=== PATIENT | female | born 1980 | race Caucasian/White ===

== ENCOUNTER 2016-07-13 05:21 | Emergency (ER) | payer BC ==
[2016-07-13 05:36] VITALS: RESP 18
[2016-07-13] MEDS ORDERED: ONDANSETRON 4 MG/2 ML VIAL IVP STA ×2 (05:42→08:08)
[2016-07-13] MEDS ORDERED: SODIUM CHLORIDE 0.9% 1,000 ML IV STA (05:42)
--- NOTE | 2016-07-13 05:44 | ED ---
General Adult HPI - General Source: patient, RN notes reviewed Mode of arrival: ambulatory Limitations: no limitations <Salvatore Hernandez - Last Filed: 07/13/16 06:51> <Salvatore Day - Last Filed: 07/13/16 09:09> - General Chief complaint: Abdominal Pain Stated complaint: abd pain Time Seen by Provider: 07/13/16 05:30 - History of Present Illness Initial comments: This is a 35-year-old female who presents to the emergency department with a 2 day history of some abdominal pain. Patient states she started with diarrhea and that stopped yesterday but she has been vomiting since then. Patient states she's had right upper quadrant abdominal pain that is intermittent in nature currently is not there. Patient states she still nauseated however. Patient denies any fever or chills. Patient denies any chest pain palpitations difficult breathing shortness of breath. Patient denies any dysuria hematuria urinary frequency. Patient denies any vaginal bleeding. Patient denies any back pain. Patient denies headache patient denies numbness weakness. (Salvatore Hernandez) - Related Data Home Medications Medication Instructions Recorded Confirmed Dextroamphetamine/Amphetamine 20 mg PO QAM 07/13/16 07/13/16 [Adderall Xr] Dextroamphetamine/Amphetamine 30 mg PO BID 07/13/16 07/13/16 [Adderall] Allergies Allergy/AdvReac Type Severity Reaction Status Date / Time shellfish derived [Shellfish] Allergy Anaphylaxis Verified 07/13/16 05:36 NSAIDS (Non-Steroidal AdvReac Abdominal Verified 07/13/16 05:36 Anti-Inflamma Pain Review of Systems ROS Other: All systems not noted in ROS Statement are negative. <Salvatore Hernandez - Last Filed: 07/13/16 06:51> ROS Other: All systems not noted in ROS Statement are negative. <Salvatore Day - Last Filed: 07/13/16 09:09> ROS Statement: Those systems with pertinent positive or pertinent negative responses have been documented in the HPI. Past Medical History Past Medical History: No Reported History History of Any Multi-Drug Resistant Organisms: None Reported Past Surgical History: Section Additional Past Surgical History / Comment(s): L5-S1 fusion Past Psychological History: ADD/ADHD Smoking Status: Never smoker Past Alcohol Use History: Occasional Past Drug Use History: None Reported <Reagan Hernandezophe - Last Filed: 07/13/16 06:51> General Exam Limitations: no limitations <Salvatore Hernandez - Last Filed: 07/13/16 06:51> General appearance: alert, in no apparent distress Head exam: Present: atraumatic, normocephalic, normal inspection Eye exam: Present: normal appearance, PERRL, EOMI. Absent: scleral icterus, conjunctival injection, periorbital swelling ENT exam: Present: normal exam, mucous membranes moist Neck exam: Present: normal inspection. Absent: tenderness, meningismus, lymphadenopathy Respiratory exam: Present: normal lung sounds bilaterally. Absent: respiratory distress, wheezes, rales, rhonchi, stridor Cardiovascular Exam: Present: regular rate, normal rhythm, normal heart sounds. Absent: systolic murmur, diastolic murmur, rubs, gallop, clicks GI/Abdominal exam: Present: soft, normal bowel sounds. Absent: distended, tenderness, guarding, rebound, rigid Extremities exam: Present: normal inspection, full ROM, normal capillary refill. Absent: tenderness, pedal edema, joint swelling, calf tenderness Back exam: Present: normal inspection Neurological exam: Present: alert, oriented X3, CN II-XII intact Psychiatric exam: Present: normal affect, normal mood Skin exam: Present: warm, dry, intact, normal color. Absent: rash <Salvatore Day - Last Filed: 07/13/16 09:09> - General Exam Comments Initial Comments: GENERAL: Patient is well-developed and well-nourished. Patient is nontoxic and well- hydrated and is in mild distress. ENT: Neck is soft and supple. No significant lymphadenopathy is noted. Oropharynx is clear. Moist mucous membranes. Neck has full range of motion without eliciting any pain. EYES: The sclera were anicteric and conjunctiva were pink and moist. Extraocular movements were intact and pupils were equal round and reactive to light. Eyelids were unremarkable. PULMONARY: Unlabored respirations. Good breath sounds bilaterally. No audible rales rhonchi or wheezing was noted. CARDIOVASCULAR: There is a regular rate and rhythm without any murmurs gallops or rubs. ABDOMEN: Soft and nontender with normal bowel sounds. No palpable organomegaly was noted. There is no palpable pulsatile mass. SKIN: Skin is clear with no lesions or rashes and otherwise unremarkable. NEUROLOGIC: Patient is alert and oriented x3. Cranial nerves II through XII are grossly intact. Motor and sensory are also intact. Normal speech, volume and content. Symmetrical smile. MUSCULOSKELETAL: Normal extremities with adequate strength and full range of motion. No lower extremity swelling or edema. No calf tenderness. LYMPHATICS: No significant lymphadenopathy is noted PSYCHIATRIC: Normal psychiatric evaluation. (Salvatore Hernandez) Course <Salvatore Hernandez - Last Filed: 07/13/16 06:51> <Salvatore Day - Last Filed: 07/13/16 09:09> Vital Signs 07/13/16 07/13/16 07/13/16 05:30 07:13 08:27 Temperature 98.6 F Pulse Rate 102 H 88 106 H Respiratory 18 18 18 Rate Blood Pressure 157/98 137/84 139/86 O2 Sat by Pulse 99 98 100 Oximetry - Reevaluation(s) Reevaluation #1: 07/13/16 09:07 Patient is reexamined, results are gone over with the patient, The same pain is significantly improved (Salvatore Day) Medical Decision Making - Lab Data Result diagrams: 07/13/16 05:57 07/13/16 05:57 <Salvatore Hernandez - Last Filed: 07/13/16 06:51> - Lab Data Result diagrams: 07/13/16 05:57 07/13/16 05:57 - Radiology Data Radiology results: report reviewed (Ultrasound gallbladder negative for acute disease), image reviewed <Salvatore Day - Last Filed: 07/13/16 09:09> - Medical Decision Making Dr. Day will be taking over the care of this patient at 7 AM (Salvatore Hernandez) 35 female PATRICIA free vaginal doll pain, some dull pain is much improved, still question gallbladder disease secondary to symptoms and risk factors, although patient could have ulcer, patient did have good hope a GI cocktail pain is controlled we'll discharge home with antacids antihistamines and pain control ( Salvatore Day) - Lab Data Lab Results 07/13/16 07/13/16 07/13/16 Range/Units 05:57 05:57 06:28 WBC 6.3 (3.8-10.6) k/uL RBC 4.59 (3.80-5.40) m/uL Hgb 13.5 (11.4-16.0) gm/dL Hct 39.1 (34.0-46.0) % MCV 85.3 (80.0-100.0) fL MCH 29.4 (25.0-35.0) pg MCHC 34.4 (31.0-37.0) g/dL RDW 13.5 (11.5-15.5) % Plt Count 265 (150-450) k/uL Neutrophils % 66 % Lymphocytes % 25 % Monocytes % 5 % Eosinophils % 1 % Basophils % 1 % Neutrophils # 4.1 (1.3-7.7) k/uL Lymphocytes # 1.6 (1.0-4.8) k/uL Monocytes # 0.3 (0-1.0) k/uL Eosinophils # 0.1 (0-0.7) k/uL Basophils # 0.0 (0-0.2) k/uL Sodium 145 (137-145) mmol/L Potassium 3.7 (3.5-5.1) mmol/L Chloride 107 (98-107) mmol/L Carbon Dioxide 27 (22-30) mmol/L Anion Gap 11 mmol/L BUN 9 (7-17) mg/dL Creatinine 0.66 (0.52-1.04) mg/dL Est GFR (MDRD) Af Amer >60 (>60 ml/min/1.73 sqM) Est GFR (MDRD) Non-Af >60 (>60 ml/min/1.73 sqM) Glucose 90 (74-99) mg/dL Calcium 8.7 (8.4-10.2) mg/dL Total Bilirubin 0.5 (0.2-1.3) mg/dL AST 19 (14-36) U/L ALT 34 (9-52) U/L Alkaline Phosphatase 55 (38-126) U/L Total Protein 6.9 (6.3-8.2) g/dL Albumin 4.0 (3.5-5.0) g/dL Amylase 93 (30-110) U/L Lipase 142 (23-300) U/L Urine Color Yellow Urine Appearance Cloudy H (Clear) Urine pH 6.5 (5.0-8.0) Ur Specific [place] 1.012 (1.001-1.035) Urine Protein Negative (Negative) Urine Glucose (UA) Negative (Negative) Urine Ketones Negative (Negative) Urine Blood Negative (Negative) Urine Nitrate Negative (Negative) Urine Bilirubin Negative (Negative) Urine Urobilinogen <2.0 (<2.0) mg/dL Ur Leukocyte Esterase Negative (Negative) Urine WBC 2 (0-5) /hpf Ur Squamous Epith Cells 43 H (0-4) /hpf Urine Bacteria Rare H (None) /hpf Urine Mucus Few H (None) /hpf Urine Yeast (Budding) Occasional H (None) /hpf Disposition <Salvatore Hernandez - Last Filed: 07/13/16 06:51> <Salvatore Day - Last Filed: 07/13/16 09:09> Clinical Impression: Abdominal pain Disposition: HOME SELF-CARE Condition: Good Instructions: Abdominal Pain (ED) Referrals: Celia Ibarra DO [Primary Care Provider] - 1-2 days Rena Gilman MD [STAFF PHYSICIAN] - 1-2 days
[2016-07-13 06:13] LABS: Basophils % (A) 1 %; CH 29.1; CHCM 34.2; Eosinophils # (A) 0.1 k/uL (0-0.7); Eosinophils % (A) 1 %; HCT 39.1 % (34.0-46.0); HDW 2.97; HGB 13.5 gm/dL (11.4-16.0); Luc # (Auto) 0.11; Luc % (Auto) 2; Lymphocytes # (A) 1.6 k/uL (1.0-4.8); Lymphocytes % (A) 25 %; MCH 29.4 pg (25.0-35.0); MCHC 34.4 g/dL (31.0-37.0); MCV 85.3 fL (80.0-100.0); Mean Platelet Volume 7.4; Monocytes # (A) 0.3 k/uL (0-1.0); Monocytes % (A) 5 %; Neutrophils # (A) 4.1 k/uL (1.3-7.7); Neutrophils % (A) 66 %; RBC 4.59 m/uL (3.80-5.40); RDW 13.5 % (11.5-15.5); WBC 6.3 k/uL (3.8-10.6); WBC (Perox) 6.23
[2016-07-13] MEDS ORDERED: HYDROmorphone 1 MG/ML 1 ML SYRINGE IVP STA (06:23)
[2016-07-13 06:25] LABS: ALT 34 U/L (9-52); AST 19 U/L (14-36); Alkaline Phosphatase 55 U/L (38-126); Amylase 93 U/L (30-110); Anion Gap 11 mmol/L; Blood Urea Nitrogen 9 mg/dL (7-17); Calcium 8.7 mg/dL (8.4-10.2); Carbon Dioxide 27 mmol/L (22-30); Chloride 107 mmol/L (98-107); Glucose 90 mg/dL (74-99); Non-African American GFR(MDRD) >60 (>60 ml/min/1.73 sqM); Potassium 3.7 mmol/L (3.5-5.1); Sodium 145 mmol/L (137-145); Total Bilirubin 0.5 mg/dL (0.2-1.3); Total Protein 6.9 g/dL (6.3-8.2)
[2016-07-13 06:43] LABS: Appearance,Urine Cloudy (Clear); Bacteria,Urine Rare /hpf; Bilirubin,Urine Negative (Negative); Glucose,Urine (UA) Negative (Negative); Ketones,Urine Negative (Negative); Leukocyte Esterase,Urine Negative (Negative); Mucus,Urine Few /hpf; Nitrite,Urine Negative (Negative); PH, Urine 6.5 (5.0-8.0); Particle Count 26514; Protein,Urine Negative (Negative); Specific Gravity,Urine 1.012 (1.001-1.035); Squamous Epithelial Cell,Urine 43 /hpf (0-4); UA Billing (MACRO vs. MICRO) MICRO; Urobilinogen,Urine <2.0 mg/dL (<2.0); WBC,Urine 2 /hpf (0-5)
--- NOTE | 2016-07-13 07:53 | US ---
EXAMINATION TYPE: US gallbladder DATE OF EXAM: 07/13/2016 7:45 AM COMPARISON: No previous CLINICAL HISTORY: Pain. RUQ pain and nausea x 4 days, gets worse after eating EXAM MEASUREMENTS: Liver Length: 16.7 cm Gallbladder Wall: 0.3 cm CBD: 0.4 cm Right Kidney: 9.8 x 5.0 x 5.1 cm TECHNOLOGIST IMPRESSION: Pancreas: Obscured by bowel gas Liver: visualized portions appear slightly heterogeneous, scanned intercostally, limited by rib shad owing Gallbladder: wnl Evidence for sonographic Guillen's sign: yes CBD: visualized portions wnl, limited by overlying bowel gas Right Kidney: visualized portions wnl, inferior pole limited by overlying bowel gas IMPRESSION: No sonographic abnormality. No gallstones or dilated ducts. There was however some pain o marce the gallbladder during the exam.
[2016-07-13] MEDS ORDERED: MAG HYDROX/AL HYDROX/SIMETH 30 ML, HYOSCYAMINE ELIXIR 10 ML, CIMETIDINE HCL 300 MG PO STA ×3 (08:08)
[2016-07-13] MEDS ORDERED: PANTOPRAZOLE 40 MG/10 ML VIAL IVP STA (08:08)
[2016-07-13] MEDS ORDERED: KETOROLAC 30 MG/ML 1 ML VIAL IVP STA (08:08)
[2016-07-13] MEDS ORDERED: MORPHINE SULFATE 4 MG/ML SYRINGE IVP STA (08:08)
[2016-07-13 09:17] VITALS: BP 124/83; PULSE 89; TEMP 98
== END 2016-07-13 09:17 | disposition home or self-care (01) ==
LOC: EC 05:21
DX: R11.2 Nausea with vomiting, unspecified (principal); F90.9 Attention-deficit hyperactivity disorder, unspecified type; Z88.6 Allergy status to analgesic agent; Z91.013 Allergy to seafood; Z79.899 Other long term (current) drug therapy
CPT/HCPCS: 36415; 80053; 82150; 83690; 85025; 81001; 76705; 99284; 96374; 96375 ×4; 96376; 96361; J2270; J2405; J1885; J1170; C9113

== ENCOUNTER → 2018-03-30 | Outpatient (CLI) | payer OTHER ==
--- NOTE | 2018-03-30 13:29 | XR ---
EXAMINATION TYPE: XR chest 2V DATE OF EXAM: 03/30/2018 COMPARISON: NONE HISTORY: Preop uterine cancer TECHNIQUE: Frontal and lateral views of the chest are obtained. FINDINGS: There is no focal air space opacity, pleural effusion, or pneumothorax seen. The cardiac silhouette size is within normal limits. The osseous structures are intact. Patient is rotated. IMPRESSION: No acute cardiopulmonary process.
[2018-03-30 14:33] LABS: Basophils # (A) 0.1 k/uL (0-0.2); Basophils % (A) 1 %; Eosinophils # (A) 0.2 k/uL (0-0.7); Eosinophils % (A) 3 %; HCT 37.8 % (34.0-46.0); HGB 12.4 gm/dL (11.4-16.0); Lymphocytes % (A) 31 %; MCH 27.9 pg (25.0-35.0); MCHC 32.7 g/dL (31.0-37.0); MCV 85.4 fL (80.0-100.0); Mean Platelet Volume 6.6; Monocytes # (A) 0.2 k/uL (0-1.0); Monocytes % (A) 4 %; Neutrophils # (A) 3.9 k/uL (1.3-7.7); Neutrophils % (A) 61 %; Platelet Count 396 k/uL (150-450); RBC 4.43 m/uL (3.80-5.40); WBC 6.4 k/uL (3.8-10.6)
[2018-03-30 14:40] LABS: ALT 21 U/L (9-52); AST 22 U/L (14-36); Albumin 4.3 g/dL (3.5-5.0); Alkaline Phosphatase 70 U/L (38-126); Anion Gap 8 mmol/L; Blood Urea Nitrogen 14 mg/dL (7-17); Carbon Dioxide 29 mmol/L (22-30); Chloride 104 mmol/L (98-107); Glucose 108 mg/dL (74-99); Potassium 4.8 mmol/L (3.5-5.1); Sodium 141 mmol/L (137-145); Total Bilirubin 0.2 mg/dL (0.2-1.3); Total Protein 7.2 g/dL (6.3-8.2)
[2018-03-30 15:18] LABS: Appearance,Urine Clear (Clear); Bacteria,Urine Rare /hpf; Bilirubin,Urine Negative (Negative); Blood,Urine Negative (Negative); Color,Urine Yellow; Glucose,Urine (UA) Negative (Negative); Ketones,Urine Negative (Negative); Leukocyte Esterase,Urine Moderate (Negative); Nitrite,Urine Negative (Negative); Protein,Urine Negative (Negative); RBC,Urine <1 /hpf (0-5); Specific Gravity,Urine 1.009 (1.001-1.035); Squamous Epithelial Cell,Urine 2 /hpf (0-4); Urobilinogen,Urine <2.0 mg/dL (<2.0); WBC,Urine 1 /hpf (0-5)
== END | disposition home or self-care (01) ==
LOC: RADXRMAIN 12:48
PROVIDERS: ATTEND Obstetrics & Gynecology Gynecologic Oncology
DX: C53.9 Malignant neoplasm of cervix uteri, unspecified (principal)
CPT/HCPCS: 71046; 80053; 81001; 82378; 85025; 86304; 86850; 86900; 86901; 87086

== ENCOUNTER → 2020-03-24 | Outpatient (CLI) | payer OTHER, BC | END | disposition home or self-care (01) | LOC: LABWHC1 16:34 | PROVIDERS: ATTEND Internal Medicine | DX: R53.82 Chronic fatigue, unspecified (principal) | CPT/HCPCS: U0003; C9803 ==

== ENCOUNTER → 2020-07-05 | Outpatient (CLI) | payer OTHER, BC ==
[2020-07-05 15:38] VITALS: BP 124/82; PULSE 108; RESP 18; TEMP 97.6; BMI 38.0
--- NOTE | 2020-07-05 15:57 | P.HPBAR ---
Bariatric H&P - History & Physicial H&P Date: 07/05/20 History & Physicial: Visit/CC: initial visit Patient initial contact: Initial weight: Initial weight in pounds: Height: 5 ft 5.25 in Initial BMI: Last weight: Current weight: 104.553 kg Current weight in pounds: 230.50 Current BMI: 38.0 [place] body weight (based on NIH guidelines): 57.266 kg Excess body weight loss: The patient is a 39 year-old F who presents for Bariatric Assessment. DATE OF SERVICE: 07/05/2020 REASON FOR CONSULTATION: Initial bariatric evaluation HISTORY OF PRESENT ILLNESS: Shilpa Thomas is a 39-year-old female who comes with morbid obesity. 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 Her highest weight is at present. Her family obesity includes an aunt with troubles with her weight. She denies stomach or esophageal cancer in the family. She denies moderate gastroesophageal reflux disease. She has lower back pain. She has sciatica. She has knee pain. She denies ankle pain. She has foot pain. She denies swelling along legs and feet. She has food allergy to shellfish. She still has her gallbladder. Her daughter had gallbladder problem at age 13. She had a total hysterectomy and appendix in 2018. She had gallbladder ultrasound in 2017. She was placed on Carafate and Prilosec for abdominal pain. She denies colon cancer, stomach or esophageal cancer. She denies easy bruising or bleeding. No reports of DVTs. No reports of diarrhea. She is looking into the gastric bypass. She presents for the first time in consultation for weight loss. At height of 5 feet 5.25 inches, her ideal body weight is 149 pounds. She comes in 230 pounds. Her body mass index is 38.1. She is 81 pounds overweight. PAST MEDICAL HISTORY: 1. Morbid obesity due to excess calories 2. Body mass index of 38.0, initial 3. Hypertensive heart disease. 4. Neuropathy PAST SURGICAL HISTORY: 1. Appendectomy 2. section 3. Hysterectomy 4. L5-S1 Fusion HOME MEDICATIONS: Home Medications Medication Instructions Recorded Confirmed Dextroamphetamine/Amphetamine 20 mg PO QAM 07/13/16 07/05/20 [Adderall Xr] Dextroamphetamine/Amphetamine 30 mg PO BID 07/13/16 07/05/20 [Adderall] Atenolol [Tenormin] 50 mg PO DAILY 07/05/20 07/05/20 Gabapentin [Neurontin] 800 mg PO QID 07/05/20 07/05/20 Metaxalone [Skelaxin] 800 mg PO TID PRN 07/05/20 07/05/20 ALLERGIES: Allergies Allergy/AdvReac Type Severity Reaction Status Date / Time shellfish derived [Shellfish] Allergy Anaphylaxis Verified 07/05/20 15:30 NSAIDS (Non-Steroidal AdvReac Abdominal Verified 07/05/20 15:30 Anti-Inflamma Pain SOCIAL HISTORY: Denies past tobacco use. FAMILY HISTORY: No family history of ulcerative colitis disease or Crohn's disease. Family history of morbid obesity. No lupus in the family. No reports of stomach or esophageal cancer. REVIEW OF ORGAN SYSTEMS: CONSTITUTIONAL: At height of 5 feet 5.25 inches, her ideal body weight is 149 pounds. She comes in 230 pounds. Her body mass index is 38.1. She is 81 pounds overweight. HEENT: Denies any active troubles with vision or hearing. Denies troubles with swallowing. ENDOCRINE: Denies diabetes. No hypothyroidism. CARDIOVASCULAR: Denies current reports of palpitations or heart attacks or chest pain. Has hypertensive heart disease. RESPIRATORY: Denies daytime somnolence. Denies chronic obstructive pulmonary d isease. GASTROINTESTINAL: Denies any bright red blood per rectum. No diarrhea. No constipation. Has gastroesophageal reflux disease. GENITOURINARY: Denies bladder urgency. No recent blood in urine MUSCULOSKELETAL: Has lower back pain and joint pain. Has osteoarthritis of the knees. NEURO: No headaches. No seizure disorders. Has neuropathy. PSYCH: Has depression. No suicidal ideation. RHEUMATOLOGIC: No lupus. No rheumatoid arthritis. HEMATOLOGIC: Denies any abnormal bleeding or bruising. Denies past history of DVTs. SKIN: No rash. No skin cancer. PHYSICAL EXAM: VITAL SIGNS: Height 5 foot 5.25 inches, weight 230 pounds. BMI 38.1 Vital Signs Temp 97.6 F 07/05/20 15:29 Pulse 108 H 07/05/20 15:29 Resp 18 07/05/20 15:29 BP 124/82 02/17/21 15:29 Pulse Ox GENERAL: Well-developed in no acute distress. HEENT: No scleral icterus. Extraocular movements grossly intact. Hears conversational speech. No nasal drainage. NECK: Supple without lymphadenopathy. CHEST: Nonlabored respirations with equal bilateral excursions. CARDIOVASCULAR: Tachycardia. Distal 2+ pulses. ABDOMEN: Obese, soft, nontender, nondistended. MUSCULOSKELETAL: No clubbing, cyanosis. NEURO: No focal or lateralizing signs. Cranial nerves 2 through 12 grossly within normal limits. PSYCH: Appropriate affect. Alert and oriented to person, place and time. SKIN: Good skin turgor. Well perfused. ASSESSMENT: 1. Morbid obesity due to excess calories 2. Body mass index of 38.0, initial 3. Hypertensive heart disease. 4. Neuropathy 5. Dietary surveillance and counseling PLAN: 1. Surgical options including a band, gastric bypass, sleeve gastrectomy were described in detail. Alternatives such as gastric balloon including duodenal switch were described. She is looking into the gastric bypass. 2. The [place] bariatric surgical collaborative data and outcomes calculator were described with surgical options. 3. Recommend a bariatric metabolic panel to evaluate for micro- including macronutrient deficiencies. 4. For history of daytime somnolence, recommend evaluation and treatment for sleep apnea. 5. Dietary surveillance and counseling was reviewed. Increased protein intake over 65 grams daily advised. 6. Will need cardiac risk assessment. 7. Recommend medical risk assessment. 8. Psych assessment per insurance guidelines. 9. Recommend upper endoscopy. 10. Recommend 12-lead EKG. Thank you for this consultation. Past Medical History Past Medical History: Cancer Additional Past Medical History / Comment(s): cervical cancer, stage 0 - 2018. History of Any Multi-Drug Resistant Organisms: None Reported Past Surgical History: Appendectomy, Section, Hysterectomy, Orthopedic Surgery Additional Past Surgical History / Comment(s): L5-S1 fusion Past Anesthesia/Blood Transfusion Reactions: No Reported Reaction Past Psychological History: ADD/ADHD Smoking Status: Never smoker Past Alcohol Use History: Occasional Past Drug Use History: None Reported Surgical - Exam Vital Signs Temp Pulse Resp BP 97.6 F 108 H 18 124/82 07/05/20 15:29 07/05/20 15:29 07/05/20 15:29 07/05/20 15:29 Results - Labs 07/05/20 16:36 07/05/20 16:36 Bariatric Checklist Checklist: Plan: Checklist: EGD: 1. Hiatal hernia: 2. H. Pylori: HgbA1c: Vitamin D: Smoking: Never smoker Primary care physician referral: NONE Psychiatry clearance: Cardiology clearance: Sleep study: Diet journal: VTE risk score: VTE risk level: Rehab needs at discharge:
[2020-07-05 17:12] LABS: HCT 40.7 % (34.0-46.0); HGB 12.8 gm/dL (11.4-16.0); MCH 27.4 pg (25.0-35.0); MCHC 31.6 g/dL (31.0-37.0); MCV 86.8 fL (80.0-100.0); Platelet Count 327 k/uL (150-450); RBC 4.69 m/uL (3.80-5.40); RDW 13.6 % (11.5-15.5); WBC 7.9 k/uL (3.8-10.6)
[2020-07-06 00:39] LABS: INR 0.87 (0.90-1.11); Partial Thromboplastin Time 28.8 sec (23.5-31.0); Prothrombin Time 9.6 sec (9.9-11.9)
[2020-07-06 00:55] LABS: % Iron Saturation 18.53 (12.00-45.00); African American GFR (CKD) 106.9 (60.0-200.0); Albumin 4.8 g/dL (3.80-4.90); Albumin/Globulin Ratio 2.4 (1.60-3.17); BUN/Creat Ratio 11.25 Ratio (12.00-20.00); Calcium 9.1 mg/dL (8.7-10.3); Chol/HDL Ratio 3.89; LDL Cholesterol,Calculated 144.2 mg/dL (0.0-131.0); Magnesium 2.3 mg/dL (1.5-2.4); Non-African American GFR(CKD) 92.2 (60.0-200.0); Phosphorus 3.4 mg/dL (2.4-5.1); Potassium 5.1 mmol/L (3.5-5.5); Total Bilirubin 0.2 mg/dL (0.3-1.2); Total Protein 6.8 g/dL (6.2-8.2); VLDL Calculation 14.8 mg/dL (5.00-40.00)
[2020-07-06 01:02] LABS: Ferritin 47.6 ng/mL (10.0-291.0)
[2020-07-06 01:40] LABS: Hemoglobin A1C 5.2 % (4.0-6.0)
[2020-07-06 10:14] LABS: Zinc, Serum 69 ug/dL (60-130)
[2020-07-07 07:06] LABS: Vitamin A 47 ug/dL (38-106)
[2020-07-07 13:47] LABS: Vit B1(Thiamine) 66 ug/L (38-122)
[2020-07-09 18:04] LABS: Selenium 119 mcg/L (63-160)
== END | disposition home or self-care (01) ==
LOC: BARWHC3 15:14
PROVIDERS: ATTEND Surgery Plastic and Reconstructive Surgery
DX: E66.01 Morbid (severe) obesity due to excess calories (principal); Z68.38 Body mass index [BMI] 38.0-38.9, adult; I11.9 Hypertensive heart disease without heart failure; G62.9 Polyneuropathy, unspecified; Z71.3 Dietary counseling and surveillance
CPT/HCPCS: 36415; 80053; 80061; 80307; 82306; 82525; 82607; 82728; 82746; 83036; 83540; 83550; 83735; 83970; 84100; 84134; 84255; 84425; 84443; 84590; 84630; 85027; 85610; 85730; 93005; 99211

== ENCOUNTER → 2021-01-01 | Outpatient (CLI) | payer OTHER, BC ==
[2021-01-01 13:12] VITALS: BMI 38.9
== END | disposition home or self-care (01) ==
LOC: BARWHC3 08:56
PROVIDERS: ATTEND Surgery Plastic and Reconstructive Surgery
DX: E66.01 Morbid (severe) obesity due to excess calories (principal); Z71.3 Dietary counseling and surveillance; Z68.38 Body mass index [BMI] 38.0-38.9, adult; Z91.013 Allergy to seafood; Z88.6 Allergy status to analgesic agent
CPT/HCPCS: 97803

== ENCOUNTER 2021-01-29 06:06 | Day surgery (SDC) | payer OTHER, BC ==
[2021-01-26 08:14] VITALS: BMI 35.5
[~2021-01-29 06:06] MED LIST: LACTATED RINGERS 1,000 ML IV SCH
[2021-01-29 06:38] VITALS: TEMP 97.6
[2021-01-29] MEDS ORDERED: LIDOCAINE 1% (10MG/ML) FOR IV START INTRADERMA ONE (06:43)
[2021-01-29] MEDS ORDERED: LIDOCAINE 1% INJ 10MG/ML (20 ML MDV) ONE (07:05)
[2021-01-29] MEDS ORDERED: PROPOFOL 10 MG/ML 20 ML VIAL IV ONE (07:05)
--- NOTE | 2021-01-29 07:07 | P.GSHP ---
History of Present Illness H&P Date: 01/29/21 CHIEF COMPLAINT: GERD HISTORY OF PRESENT ILLNESS: The patient is a 40-year-old female who presents reports gastroesophageal reflux disease. Upper endoscopy was offered for further evaluation and management. PAST MEDICAL HISTORY: Please see list. PAST SURGICAL HISTORY: Please see list. MEDICATIONS: Please see list. ALLERGIES: Please see list. SOCIAL HISTORY: No illicit drug use FAMILY HISTORY: No reports of Crohn disease or ulcerative colitis. REVIEW OF ORGAN SYSTEMS: CONSTITUTIONAL: No reports of fevers or chills. GI: Denies any blood in stools or constipation. PHYSICAL EXAM: VITAL SIGNS: Stable GENERAL: Well-developed and pleasant in no acute distress. HEENT: No scleral icterus. Extraocular movements grossly intact. Moist buccal mucosa. NECK: Supple without lymphadenopathy. CHEST: Unlabored respirations. Equal bilateral excursions. CARDIOVASCULAR: Regular rate and rhythm. Distal 2+ pulses. ABDOMEN: Soft, nondistended. MUSCULOSKELETAL: No clubbing, cyanosis, or edema. ASSESSMENT: 1. Gastroesophageal reflux disease PLAN: 1. Recommend proceeding with an upper endoscopy Past Medical History Past Medical History: Cancer Additional Past Medical History / Comment(s): Hx cervical cancer, stage 0 - 2018. Hx broken right foot, no surgery. History of Any Multi-Drug Resistant Organisms: None Reported Past Surgical History: Appendectomy, Back Surgery, Section, Hysterectomy Additional Past Surgical History / Comment(s): L5-S1 Fusion. Section X1. Past Anesthesia/Blood Transfusion Reactions: No Reported Reaction Past Psychological History: ADD/ADHD Additional Psychological History / Comment(s): ADHD. Smoking Status: Never smoker Past Alcohol Use History: Occasional Past Drug Use History: None Reported - Past Family History Father Family Medical History: Cancer Medications and Allergies Home Medications Medication Instructions Recorded Confirmed Type Dextroamphetamine/Amphetamine 20 mg PO QAM 07/13/16 01/29/21 History [Adderall Xr] Dextroamphetamine/Amphetamine 30 mg PO BID 07/13/16 01/29/21 History [Adderall] Atenolol [Tenormin] 50 mg PO DAILY 07/05/20 01/26/21 History Gabapentin [Neurontin] 800 mg PO QID 07/05/20 01/29/21 History Metaxalone [Skelaxin] 800 mg PO TID PRN 07/05/20 01/26/21 History Allergies Allergy/AdvReac Type Severity Reaction Status Date / Time shellfish derived [Shellfish] Allergy Anaphylaxis Verified 01/26/21 08:02 NSAIDS (Non-Steroidal AdvReac Abdominal Verified 01/26/21 08:02 Anti-Inflamma Pain Surgical - Exam Vital Signs Temp Pulse Resp BP Pulse Ox 97.6 F 77 16 95/53 95 01/29/21 06:35 01/29/21 06:35 01/29/21 06:35 01/29/21 06:35 01/29/21 06:35
--- NOTE | 2021-01-29 07:16 | P.PCN ---
Date of Procedure: 01/29/21 Description of Procedure: PREOPERATIVE DIAGNOSIS: Gastroesophageal reflux disease. Morbid obesity. POSTOPERATIVE DIAGNOSIS: Morbid obesity. Gastritis. Gastroesophageal reflux disease. OPERATION: Esophagogastroduodenoscopy with biopsies along antrum. SURGEON: Roxy Rodriguez MD ANESTHESIA: MAC. INDICATIONS: The patient is a 40-year-old female who presents with a history of reflux disease. Benefits and risks of the procedure were described. Informed consent was obtained. DESCRIPTION: The patient was brought into the endoscopy suite and laid in the left lateral decubitus position. An Olympus gastroscope was passed along the posterior oropharynx down to the distal esophagus where the squamocolumnar junction was encountered at 36 cm from the incisors. The stomach was entered and no bile reflux was found. Additional findings are listed below. Biopsies with cold forceps were obtained of the antrum. The first through third portion of the duodenum was examined and unremarkable. Retroflexion of the scope confirmed Hill grade 2 lower esophageal valve. The squamocolumnar junction demonstrated LA grade A erosive esophagitis. The stomach was desufflated. The patient tolerated the procedure well. FINDINGS: Squamocolumnar junction 36 cm from the incisors. Diaphragmatic hiatus at 36 cm. Hill grade 4 lower esophageal valve. LA grade A erosive esophagitis. No active duodenitis. Chronic gastritis RECOMMENDATIONS: Upper endoscopy as needed. Plan - Discharge Summary Discharge Rx Participant: Yes New Discharge Prescriptions: Continue Dextroamphetamine/Amphetamine [Adderall Xr] 20 mg PO QAM Dextroamphetamine/Amphetamine [Adderall] 30 mg PO BID Metaxalone [Skelaxin] 800 mg PO TID PRN PRN Reason: Pain Gabapentin [Neurontin] 800 mg PO QID Atenolol [Tenormin] 50 mg PO DAILY Discharge Medication List Dextroamphetamine/Amphetamine [Adderall Xr] 20 mg PO QAM 07/13/16 [History] Dextroamphetamine/Amphetamine [Adderall] 30 mg PO BID 07/13/16 [History] Atenolol [Tenormin] 50 mg PO DAILY 07/05/20 [History] Gabapentin [Neurontin] 800 mg PO QID 07/05/20 [History] Metaxalone [Skelaxin] 800 mg PO TID PRN 07/05/20 [History] Follow up [facility]ment(s[facility] [place] [facility] - [facility]21 Patient Instructions/Handouts: Diet for Stomach Ulcers and Gastritis (ED) Discharge Disposition: HOME SELF-CARE
[2021-01-29 07:36] VITALS: BP 108/71; PULSE 79; RESP 16
== END 2021-01-29 08:08 | disposition home or self-care (01) ==
LOC: ORWHC2ENDO 06:06
PROVIDERS: ATTEND Surgery Plastic and Reconstructive Surgery
DX: K29.50 Unspecified chronic gastritis without bleeding (principal); K21.9 Gastro-esophageal reflux disease without esophagitis; E66.01 Morbid (severe) obesity due to excess calories; Z85.41 Personal history of malignant neoplasm of cervix uteri; Z88.6 Allergy status to analgesic agent; Z90.49 Acquired absence of other specified parts of digestive tract; F90.9 Attention-deficit hyperactivity disorder, unspecified type; Z79.899 Other long term (current) drug therapy
CPT/HCPCS: 43239; 88305; 88342; J2001; J2704

== ENCOUNTER → 2021-05-09 | Outpatient (CLI) | payer OTHER, BC ==
[2021-05-09 17:30] VITALS: BP 128/78; PULSE 91; RESP 16; TEMP 98; BMI 38.5
== END | disposition home or self-care (01) ==
LOC: BARWHC3 17:19
PROVIDERS: ATTEND Surgery Plastic and Reconstructive Surgery
DX: E66.01 Morbid (severe) obesity due to excess calories (principal); Z68.38 Body mass index [BMI] 38.0-38.9, adult
CPT/HCPCS: 99211

== ENCOUNTER → 2021-05-09 | Outpatient (CLI) | payer OTHER, BC ==
--- NOTE | 2021-05-09 15:04 | P.BASOAP ---
Subjective Progress Note Date: 05/09/21 Moderate prior surgery. Looking into gastric bypass. Consent obtained. Options of lysis of adhesion or sleeve. Sleeve as an alternative. Assessment/Plan Plan: Date: Initial Weight: Initial BMI: Current Weight: Current BMI: Type of Surgery: Total Volume in Band: Previous Volume: Volume Removed: Volume Added: Band Size:
== END | disposition home or self-care (01) ==
LOC: EDSTATUS 10:00 → HEALTHACC 13:28
PROVIDERS: ATTEND Surgery Plastic and Reconstructive Surgery
DX: Z53.9 Procedure and treatment not carried out, unspecified reason (principal)

== ENCOUNTER 2021-08-27 07:30 | Inpatient (IN) | payer BC ==
[~2021-08-27 07:30] MED LIST changes: +CHLORHEXIDINE GLUCONATE 15 ML CUP MUCOUS MEM PRN; +DEXAMETHASONE SOD PHOSPHATE 4 MG/ML 1 ML VIAL IV ONE; +ENOXAPARIN 40 MG/0.4 ML SYRINGE SQ PRN; -LACTATED RINGERS 1,000 ML IV SCH; +MIDAZOLAM 2 MG/2 ML VIAL IV PRN; +ONDANSETRON 4 MG/2 ML VIAL IVP ONE; +PANTOPRAZOLE 40 MG/10 ML VIAL IVP PRN; +SCOPOLAMINE 1 MG/72 HR PATCH TRANSDERM ONE
--- NOTE | 2021-08-27 08:50 | P.GSHP ---
History of Present Illness H&P Date: 08/27/21 CHIEF COMPLAINT: Morbid obesity HISTORY OF PRESENT ILLNESS: Shilpa Thomas is a 40-year-old female who comes with morbid obesity. 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 Her highest weight is at present. Her family obesity includes an aunt with troubles with her weight. She denies stomach or esophageal cancer in the family. She denies moderate gastroesophageal reflux disease. She has lower back pain. She has sciatica. She has knee pain. She denies ankle pain. She has foot pain. She denies swelling along legs and feet. She has food allergy to shellfish. She still has her gallbladder. Her daughter had gallbladder problem at age 13. She had a total hysterectomy and appendix in 2018. She had gallbladder ultrasound in 2017. She was placed on Carafate and Prilosec for abdominal pain. She denies colon cancer, stomach or esophageal cancer. She denies easy bruising or bleeding. No reports of DVTs. No reports of diarrhea. She is looking into the sleeve gastrectomy. At height of 5 feet 5.25 inches, her ideal body weight is 149 pounds. She comes in 239 pounds. Her body mass index is 39.0. She is 90 pounds overweight. PAST MEDICAL HISTORY: 1. Morbid obesity due to excess calories 2. Body mass index of 39 3. Hypertensive heart disease. 4. Neuropathy PAST SURGICAL HISTORY: 1. Appendectomy 2. section 3. Hysterectomy 4. L5-S1 Fusion HOME MEDICATIONS: Home Medications Medication Instructions Recorded Confirmed Dextroamphetamine/Amphetamine 20 mg PO QAM 07/13/16 07/05/20 [Adderall Xr] Dextroamphetamine/Amphetamine 30 mg PO BID 07/13/16 07/05/20 [Adderall] Atenolol [Tenormin] 50 mg PO DAILY 07/05/20 07/05/20 Gabapentin [Neurontin] 800 mg PO QID 07/05/20 07/05/20 Metaxalone [Skelaxin] 800 mg PO TID PRN 07/05/20 07/05/20 ALLERGIES: Allergies Allergy/AdvReac Type Severity Reaction Status Date / Time shellfish derived [Shellfish] Allergy Anaphylaxis Verified 07/05/20 15:30 NSAIDS (Non-Steroidal AdvReac Abdominal Verified 07/05/20 15:30 Anti-Inflamma Pain SOCIAL HISTORY: Denies past tobacco use. FAMILY HISTORY: No family history of ulcerative colitis disease or Crohn's disease. Family history of morbid obesity. No lupus in the family. No reports of stomach or esophageal cancer. REVIEW OF ORGAN SYSTEMS: CONSTITUTIONAL: At height of 5 feet 5.25 inches, her ideal body weight is 149 pounds. She comes in 230 pounds. Her body mass index is 38.1. She is 81 pounds overweight. HEENT: Denies any active troubles with vision or hearing. Denies troubles with swallowing. ENDOCRINE: Denies diabetes. No hypothyroidism. CARDIOVASCULAR: Denies current reports of palpitations or heart attacks or chest pain. Has hypertensive heart disease. RESPIRATORY: Denies daytime somnolence. Denies chronic obstructive pulmonary disease. GASTROINTESTINAL: Denies any bright red blood per rectum. No diarrhea. No constipation. Has gastroesophageal reflux disease. GENITOURINARY: Denies bladder urgency. No recent blood in urine MUSCULOSKELETAL: Has lower back pain and joint pain. Has osteoarthritis of the knees. NEURO: No headaches. No seizure disorders. Has neuropathy. PSYCH: Has depression. No suicidal ideation. RHEUMATOLOGIC: No lupus. No rheumatoid arthritis. HEMATOLOGIC: Denies any abnormal bleeding or bruising. Denies past history of DVTs. SKIN: No rash. No skin cancer. PHYSICAL EXAM: VITAL SIGNS: Height 5 foot 5.25 inches, weight 230 pounds. BMI 38.1 GENERAL: Well-developed in no acute distress. HEENT: No scleral icterus. Extraocular movements grossly intact. Hears conversational speech. No nasal drainage. NECK: Supple without lymphadenopathy. CHEST: Nonlabored respirations with equal bilateral excursions. CARDIOVASCULAR: Tachycardia. Distal 2+ pulses. ABDOMEN: Obese, soft, nontender, nondistended. MUSCULOSKELETAL: No clubbing, cyanosis. NEURO: No focal or lateralizing signs. Cranial nerves 2 through 12 grossly within normal limits. PSYCH: Appropriate affect. Alert and oriented to person, place and time. SKIN: Good skin turgor. Well perfused. ASSESSMENT: 1. Morbid obesity due to excess calories 2. Body mass index of 38.7 3. Hypertensive heart disease. 4. Neuropathy 5. Dietary surveillance and counseling PLAN: 1. Bariatric options between a sleeve, band and a Alix-en-Y gastric bypass were reviewed in detail. The patient elected for a sleeve gastrectomy. Robotic assisted approach described. 2. The [place] [facility] Data was also reviewed with benefits and risks as described. 3. An 8 page second-generation bariatric consent form was reviewed in detail including potential of bleeding, infection, leaks, adequate weight loss, nutritional deficiencies which the patient demonstrated understanding of the risks. 4. A 2 week high-protein low caloric 800 kcal diet described to address hepatomegaly. 5. Preoperative labs including complete metabolic panel and CBC with type and screen recommended. 6. DVT prophylaxis per [place] [facility]ariat[facility] collaborative. 7. Antibiotic prophylaxis. 8. Inpatient hospitalization anticipated for more than 2 nights. 9. All questions and concerns were addressed with the patient. 10. Overall, patient has expressed understanding of bariatric care including postoperative diet and commitment of lifestyle. Patient should benefit from surgical intervention for correction of her morbid obesity. Past Medical History Past Medical History: Cancer Additional Past Medical History / Comment(s): Hx cervical cancer, stage 0 (2018)., chronic back pain., States hx of fast heart rate. History of Any Multi-Drug Resistant Organisms: None Reported Past Surgical History: Appendectomy, Section, Hysterectomy Additional Past Surgical History / Comment(s): L5-S1 fusion Past Anesthesia/Blood Transfusion Reactions: No Reported Reaction Past Psychological History: ADD/ADHD Additional Psychological History / Comment(s): ADHD. Smoking Status: Never smoker Past Alcohol Use History: Occasional Past Drug Use History: None Reported - Past Family History Father Family Medical History: Cancer Additional Family Medical History / Comment(s): LIVER CANCER Medications and Allergies Home Medications Medication Instructions Recorded Confirmed Type Dextroamphetamine/Amphetamine 20 mg PO 0300 07/13/16 08/23/21 History [Adderall Xr] Dextroamphetamine/Amphetamine 30 mg PO 0400,1200 07/13/16 08/23/21 History [Adderall] Atenolol [Tenormin] 50 mg PO HS 07/05/20 08/23/21 History Gabapentin [Neurontin] 800 mg PO QID 07/05/20 08/23/21 History Metaxalone [Skelaxin] 800 mg PO TID PRN 07/05/20 08/23/21 History Amitriptyline HCl [Elavil] 40 mg PO HS 08/23/21 08/23/21 History Calcium Bri Chew 1 dose PO DAILY 08/23/21 History Cholecalciferol [Vitamin D3 (125 4 cap PO DAILY 08/23/21 08/23/21 History Mcg = 5000 Iu)] Ibuprofen [Motrin] 800 mg PO DIRECTED PRN 08/23/21 08/23/21 History Multivitamin/Iron/Folic Acid 1 each PO DAILY 08/23/21 08/23/21 History [Centrum Women Tablet] Vitamin C/Biotin [Hair, Skin and 2 tab PO HS 08/23/21 08/23/21 History Nails Chew] buPROPion [Wellbutrin] 200 mg PO QAM 08/23/21 08/23/21 History Allergies Allergy/AdvReac Type Severity Reaction Status Date / Time shellfish derived [Shellfish] Allergy Anaphylaxis Verified 08/23/21 13:41
[2021-08-27] MEDS ORDERED: GABAPENTIN 300 MG CAP PO PRN (09:05)
[2021-08-27] MEDS ORDERED: ACETAMINOPHEN TAB 500 MG TAB PO PRN (09:05)
[2021-08-27] MEDS: LACTATED RINGERS 1,000 ML IV SCH (09:59)
[2021-08-27] MEDS ORDERED: LIDOCAINE 1% (10MG/ML) FOR IV START INTRADERMA ONE (09:59)
[2021-08-27] MEDS ORDERED: atenoloL 50 MG TAB PO STA (10:26)
[2021-08-27] MEDS ORDERED: BUPIVACAIN-EPI 0.25%-1:200,000 30 ML VIAL SQ ONE (12:29)
[2021-08-27] MEDS: HYDROmorphone 0.5 MG/0.5 ML SYRINGE IVP PRN ×3 (13:59→14:36)
[2021-08-27] MEDS ORDERED: diphenhydrAMINE 50 MG/ML 1 ML VIAL IVP ONE (14:00)
[2021-08-27] MEDS ORDERED: diphenhydrAMINE 50 MG/ML 1 ML VIAL IVP PRN (14:33)
[2021-08-27] MEDS ORDERED: NALOXONE 0.4 MG/ML 1 ML VIAL IV PRN (14:33)
[2021-08-27] MEDS ORDERED: IV FLUID CONTINUATION 1,000 ML IV ONE (18:39)
[2021-08-27] MEDS: HYDROmorphone 1 MG/ML 1 ML SYRINGE IVP PRN (20:18)
[2021-08-27] MEDS: ACETAMINOPHEN IV (For NPO) 1,000 MG in EMPTY BAG 1 BAG IVPB SCH (20:19)
[2021-08-27] MEDS: ONDANSETRON 4 MG/2 ML VIAL IVP SCH (20:19)
[2021-08-27] MEDS: 0.9% NACL WITH KCL 20 MEQ/L 1,000 ML IV SCH ×2 (20:20→20:21)
[2021-08-27] MEDS: PANTOPRAZOLE 40 MG/10 ML VIAL IV SCH (20:20)
[2021-08-27] MEDS: ALBUTEROL NEBULIZED 2.5 MG/3 ML INHALATION SCH (20:58)
[2021-08-27] MEDS ORDERED: CYCLOBENZAPRINE 10 MG TAB PO PRN (21:07)
[2021-08-27] MEDS: SIMETHICONE 40 MG/0.6 ML DROPS 2,000 MG/30 ML BOTTLE PO SCH (21:10)
[2021-08-27] MEDS: HYOSCYAMINE ORAL DROPS 1.875 MG/15 ML BOTTLE PO SCH (21:10)
[2021-08-27] MEDS: GABAPENTIN 400 MG CAP PO SCH (21:12)
--- NOTE | 2021-08-27 21:19 | P.OP ---
Date of Procedure: 08/27/21 Description of Procedure: SURGEON: JAYMIE MORA MD PREOPERATIVE DIAGNOSES: 1. Morbid obesity due to excess calories 2. Body mass index of 39.8 3. Hypertensive heart disease. 4. Neuropathy 5. Chronic back pain 6. Osteoarthritis of the knees POSTOPERATIVE DIAGNOSES: 1. Morbid obesity due to excess calories 2. Body mass index of 39.8 3. Hypertensive heart disease. 4. Neuropathy 5. Chronic back pain 6. Osteoarthritis of the knees OPERATION: 1. Robotic assisted daVinci Xi laparoscopic sleeve gastrectomy with 40-Lithuanian bougie, multiport. 2. Intraoperative esophagogastroduodenoscopy. ANESTHESIA: Gen. local anesthetic ESTIMATED BLOOD LOSS: 5 mL SPECIMENS REMOVED: Sleeve gastrectomy COMPLICATIONS: None. FINDINGS: 1. Negative intraoperative esophagogastrojejunoscopy leak test. 2. No hepatomegaly and no large hiatus hernia. 3. Total of 6 staplers used including 4 - 60 mm blue robot harrison and 2 - 60 mm green robot loads used to create the gastric sleeve. 4. Sleeve gastrectomy, 28 x 4 cm INDICATIONS: Shilpa Thomas is a 40-year-old female who comes with morbid obesity. She is looking into the sleeve gastrectomy. She completed the bariatric preoperative workup. At height of 5 feet 5.25 inches, her ideal body weight is 149 pounds. She comes in 239 pounds. Her body mass index is 39.8. She is 90 pounds overweight. All surgical options for morbid obesity had been described using the [place] [facility] collaborative comorbidity resolution including complication risk score. A second-generation bariatric consent form was described in detail including the possibility of protein malnutrition, leaks, gastric stricture, venous thrombosis, gastroesophageal reflux disease, need for further surgery for which she demonstrated understanding. Benefits and risks of the procedure were described at length. Informed consent was obtained. DESCRIPTION: The patient was brought into the operating room theater. Preoperatively she had received Lovenox subcutaneously for DVT prophylaxis. Additionally she had Peridex oral solution as an oral decontaminant. After general induction, the abdomen was prepped and draped in standard sterile fashion. An Ioban draping was placed along the abdomen. A robotic da Juan Antonio Xi system was prepped and primed. At 15 cm from the xiphoid, proposed port sites were marked with indelible marker along the anterior axillary line bilaterally, mid axillary line bilaterally with each ports were marked 10 to 15 cm from each other. The robotic stapler port was marked for the right midclavicular line. A 5 mm 0 degrees laparoscopic trocar entry was performed along the left upper quadrant. The abdomen was insufflated to 15 mmHg pressure was tolerated well. Diagnostic laparoscopy demonstrated no injury to bowel, viscera, or mesentery. No evidence of large hiatus hernia was identified. The liver edge was sharp consistent with 2 week low-carb high-protein diet. A 8 mm port was placed along the left upper abdominal wall after exchanging the 5 mm port. A separate 8 mm port was placed along the left lateral abdominal wall. Please note that the ports were placed at least 20 cm away from the target anatomy. Care was taken to check each robotic arms were safely away from collision with the bed or the patient. At the epigastrium, a medium sized Kirstie liver retractor was placed under direct visualization with the Iron Duct Layer Helper placed under the right shoulder of the patient. Next, 12-mm robot stapler port was placed along the right upper quadrant. The camera 8-mm port was maintained along the epigastrium. The patient was repositioned in reverse Trendelenburg position at 21-degrees after lowering the bed. The robot was docked along the left side of the patient. Using a grasper for arm 4, a vessel sealer for arm 3, including grasper for arm 1, the robotic system was docked and primed as described. Instruments were interchanged by the wellness assistant for stapler loads. The camera was placed at 30- degrees down. I had sat at the console. The pylorus was identified and 6 cm proximally along the greater curvature of the stomach, the short gastrics were mobilized upwards to the angle of His using a vessel sealer. Hemostasis was excellent during this portion of the procedure. Next, the upper pole of the stomach was adherent to the left jesús, which was gently dissected free using atraumatic grasper. I went to the head of the bed and placed 40-Lithuanian blunt bougie into the sto mach. The bougie was readjusted by the nurse general scrap worker. Robotic stapler green loads 60 mm 2 followed by blue 60 mm x 4 loads were used to create the sleeve. Initial firing was across the antrum of the stomach towards the angle of His. The staple line was linear without corkscrewing. The space from the angularis incisura of the sleeve was approximately 4 cm. I then went to the head of the bed to perform the intraoperative esophagogastroduodenoscopy leak test. The bougie was withdrawn. The upper pole of the stomach was bathed using normal saline solution. The scope was withdrawn with careful inspection along the staple line for which no leaks were found along the entire length. Additionally,the sleeve was completely hemostatic without any encroachment along the angularis incisura. Its topology was a soft "J". No stricture was encountered upon placement of the scope. The GI tract was desufflated. The patient tolerated this portion of the procedure well. The scope was completely withdrawn. The robot was undocked. I then rescrubbed into case, whereby the irrigation fluid was aspirated from the abdominal cavity. Tisseel fibrin sealant was placed along the entire staple length. Once dried the Kirstie liver retractor was removed. Attention was now brought to removal of the specimen. The distal end of the sleeve gastrectomy specimen was brought out through the 12 mm port at the left upper quadrant. The specimen was gently removed en total. No contamination had occurred during this process. All instruments and pneumoperitoneum including irrigation fluid was removed from the abdominal cavity. The 12 mm port site was closed using 0-Vicryl and Ricky Bustillos and irrigated with diluted hydrogen peroxide. The final incisions were closed using subcuticular interrupted suture of 4-0 Monocryl. Exofin was applied to the skin once the skin had been cleansed. OptiFoam dressing was placed along the stomach extraction site. The sleeve specimen was measured and checked also for leaks which none were found. At the end of the procedure, needle, sponge, and instrument count was verified correct by the surgical territory manager. The patient was taken to the postanesthesia care unit in stable condition. She had tolerated the procedure well. Intraoperative films and findings were reviewed with the patient's family.
[2021-08-28] MEDS: HYDROmorphone 1 MG/ML 1 ML SYRINGE IVP PRN ×6 (00:45→21:13)
[2021-08-28] MEDS: HYOSCYAMINE ORAL DROPS 1.875 MG/15 ML BOTTLE PO SCH ×5 (00:45→23:55)
[2021-08-28] MEDS: SIMETHICONE 40 MG/0.6 ML DROPS 2,000 MG/30 ML BOTTLE PO SCH ×5 (00:45→23:55)
[2021-08-28] MEDS: ONDANSETRON 4 MG/2 ML VIAL IVP SCH ×5 (00:45→23:47)
[2021-08-28] MEDS: 0.9% NACL WITH KCL 20 MEQ/L 1,000 ML IV SCH ×2 (03:26→17:14)
[2021-08-28] MEDS: ACETAMINOPHEN IV (For NPO) 1,000 MG in EMPTY BAG 1 BAG IVPB SCH ×3 (05:26→11:45)
[2021-08-28] MEDS: ALBUTEROL NEBULIZED 2.5 MG/3 ML INHALATION SCH ×4 (08:06→21:45)
[2021-08-28] MEDS: LACTATED RINGERS 1,000 ML IV SCH (08:18)
[2021-08-28] MEDS: GABAPENTIN 400 MG CAP PO SCH ×4 (08:53→21:02)
[2021-08-28] MEDS: ENOXAPARIN 40 MG/0.4 ML SYRINGE SQ SCH (08:54)
[2021-08-28 09:14] LABS: Basophils # (A) 0.03 X 10*3/uL (0.00-0.10); Basophils % (A) 0.4 %; Eosinophils # (A) 0 X 10*3/uL (0.04-0.35); Eosinophils % (A) 0 %; HGB 10.5 g/dL (12.0-15.0); Immature Grans, Automated 0.2 %; Lymphocytes # (A) 2.19 X 10*3/uL (0.90-5.00); Lymphocytes % (A) 26.9 %; MCH 27.9 pg (27.0-32.0); MCHC 30.9 g/dL (32.0-37.0); MCV 90.2 fL (80.0-97.0); Mean Platelet Volume 10.1 fL (9.5-12.2); Monocytes # (A) 0.46 X 10*3/uL (0.20-1.00); Monocytes % (A) 5.6 %; NRBC Per 100 WBC 0 /100 WBCS (0.0-0.0); Neutrophils # (A) 5.45 X 10*3/uL (1.80-7.70); Neutrophils % (A) 66.9 %; Platelet Count 286 X 10*3/uL (140-440); RBC 3.77 X 10*6/uL (4.10-5.20); RDW 13.8 % (11.5-14.5); WBC 8.15 X 10*3/uL (4.50-10.00)
[2021-08-28 09:30] LABS: Anion Gap 13.4 mmol/L (10.00-18.00); Carbon Dioxide 21.6 mmol/L (20.0-27.5); Magnesium 2.3 mg/dL (1.5-2.4); Potassium 4.2 mmol/L (3.5-5.5)
[2021-08-28 09:31] LABS: African American GFR (CKD) 106.1 (60.0-200.0); Blood Urea Nitrogen 8.5 mg/dL (9.0-27.0); Calcium 8.5 mg/dL (8.7-10.3); Non-African American GFR(CKD) 91.6 (60.0-200.0); Phosphorus 2.3 mg/dL (2.4-5.1)
[2021-08-28] MEDS: PANTOPRAZOLE 40 MG/10 ML VIAL IV SCH ×2 (10:26→21:02)
[2021-08-28] MEDS ORDERED: SODIUM CHLORIDE 0.9% 2,000 ML IV ONE (10:36)
[2021-08-28] MEDS ORDERED: methylPREDNISolone SOD SUCCI 125 MG/2 ML VIAL IV STA ×2 (11:29→12:05)
[2021-08-28] MEDS ORDERED: diphenhydrAMINE 50 MG/ML 1 ML VIAL IVP STA (12:06)
[2021-08-28] MEDS: DEXAMETHASONE SOD PHOSPHATE 4 MG/ML 1 ML VIAL IVP SCH ×3 (13:17→23:47)
[2021-08-28 14:36] VITALS: BMI 39.7
--- NOTE | 2021-08-28 15:19 | P.PN ---
Subjective Progress Note Date: 08/28/21 CHIEF COMPLAINT: Morbid obesity HISTORY OF PRESENT ILLNESS: Patient is status post robotic laparoscopic sleeve gastrectomy. Patient is reporting pain more on the left lower abdomen. She is requiring the IV Dilaudid. She also has a known shellfish ALLERGY. Radiology is recommending that patient is premedicated with steroids prior to having her upper GI completed upper GI scheduled for 3:00 this afternoon. Patient denies any nausea or vomiting. She is having some flatus. She is tolerating the ba riatric clears. She did have nausea earlier that has improved with antiemetics and IV fluids. Patient has developed a rash on her face shoulder and chest. The rash is improving with the steroids and Benadryl. PHYSICAL EXAM: VITAL SIGNS: Reviewed GENERAL: Well-developed in no acute distress. HEENT: No sclera icterus. Extraocular movements grossly intact. Moist buccal mucosa. Head is atraumatic, normocephalic. Hears conversational speech. No nasal drainage. NECK: Supple without lymphadenopathy. CHEST: Non-labored respirations and equal bilateral excursions. CARDIOVASCULAR: Palpable 2+ radial pulses. ABDOMEN: Soft. Nondistended. Incision sites clean dry and intact. Minimal bruising noted. MUSCULOSKELETAL: No clubbing or cyanosis. NEUROLOGIC: No focal or lateralizing signs. Cranial nerves II through XII grossly intact. PSYCH: Appropriate affect. Alert and oriented to person, place and time. SKIN: Well perfused. Good skin turgor. ASSESSMENT: 1. Morbid obesity due to excess calories status post Robotic assisted daVinci Xi laparoscopic sleeve gastrectomy 2. Body mass index of 39.8 3. Hypertensive heart disease. 4. Neuropathy 5. Chronic back pain 6. Osteoarthritis of the knees PLAN: -Follow up on upper GI result -Continue bariatric clear liquid diet -Continue IV fluids -2 L IV fluid bolus given hydration -Add IV Toradol to help with pain control -Add IV Decadron -Encourage patient to ambulate -Encourage patient to use incentive spirometer -DVT prophylaxis Lovenox and GI prophylaxis Protonix Physician Clerical Support Specialist note has been reviewed by physician. Signing provider agrees with the documented findings, assessment, and plan of care. CHIEF COMPLAINT: Morbid obesity HISTORY OF PRESENT ILLNESS: Shilpa Thomas is a 40-year-old female who comes with morbid obesity. 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 Her highest weight is at present. Her family obesity includes an aunt with troubles with her weight. She denies stomach or esophageal cancer in the family. She denies moderate gastroesophageal reflux disease. She has lower back pain. She has sciatica. She has knee pain. She denies ankle pain. She has foot pain. She denies swelling along legs and feet. She has food allergy to shellfish. She still has her gallbladder. Her daughter had gallbladder problem at age 13. She had a total hysterectomy and appendix in 2018. She had gallbladder ultrasound in 2017. She w as placed on Carafate and Prilosec for abdominal pain. She denies colon cancer, stomach or esophageal cancer. She denies easy bruising or bleeding. No reports of DVTs. No reports of diarrhea. She is looking into the sleeve gastrectomy. At height of 5 feet 5.25 inches, her ideal body weight is 149 pounds. She comes in 239 pounds. Her body mass index is 39.0. She is 90 pounds overweight. REVIEW OF ORGAN SYSTEMS: CARDIOVASCULAR: Denies current reports of palpitations or heart attacks or chest pain. Has hypertensive heart disease. GASTROINTESTINAL: Denies any bright red blood per rectum. No diarrhea. No constipation. Has gastroesophageal reflux disease. MUSCULOSKELETAL: Has lower back pain and joint pain. Has osteoarthritis of the knees. NEURO: No headaches. No seizure disorders. Has neuropathy. PHYSICAL EXAM: VITAL SIGNS: Reviewed GENERAL: Well-developed in no acute distress. HEENT: No scleral icterus. Extraocular movements grossly intact. Hears conversational speech. No nasal drainage. NECK: Supple without lymphadenopathy. CHEST: Nonlabored respirations with equal bilateral excursions. CARDIOVASCULAR: 2+ radial pulses ABDOMEN: Abdominal binder present. Incision is correct. Appropriate tenderness left upper quadrant. MUSCULOSKELETAL: No clubbing, cyanosis. NEURO: No focal or lateralizing signs. Cranial nerves 2 through 12 grossly within normal limits. PSYCH: Appropriate affect. Alert and oriented to person, place and time. SKIN: Good skin turgor. Well perfused. LABS: Reviewed. Hemoglobin down 10.8. STUDIES: Esophagram reviewed demonstrating no obstruction. This is my independent interpretation. ASSESSMENT: 1. Morbid obesity due to excess calories 2. Body mass index of 38.7 3. Hypertensive heart disease. 4. Neuropathy 5. Dietary surveillance and counseling 6. Status post sleeve gastrectomy PLAN: 1. IV fluid hydration advised 2. Increase oral intake of fluids. 3. Discharge home pending tolerating diet Objective - Vital Signs Vital signs: Vital Signs Temp 98.3 F 08/28/21 13:00 Pulse 66 08/28/21 13:00 Resp 14 08/28/21 09:41 BP 103/69 08/28/21 13:00 Pulse Ox 96 08/28/21 13:00 Intake & Output 08/27/21 08/28/21 08/28/21 18:59 06:59 18:59 Intake Total 1900 Output Total 5 Balance 189 Weight 109.3 kg 109.3 kg Intake: IV 1900 Output: Estimated Blood Loss 5 - Labs CBC & Chem 7: 08/28/21 06:42 08/28/21 06:42 Labs: Abnormal Lab Results - Last 24 Hours (Table) 08/28/21 08/28/21 Range/Units 06:42 06:42 RBC 3.77 L (4.10-5.20) X 10*6/uL Hgb 10.5 L (12.0-15.0) g/dL Hct 34.0 L (37.2-46.3) % MCHC 30.9 L (32.0-37.0) g/dL Eosinophils # 0 L (0.04-0.35) X 10*3/uL BUN 8.5 L (9.0-27.0) mg/dL Calcium 8.5 L (8.7-10.3) mg/dL Phosphorus 2.3 L (2.4-5.1) mg/dL
--- NOTE | 2021-08-28 15:46 | FL ---
SINGLE CONTRAST UPPER GI EXAMINATION: CLINICAL HISTORY: 40-year-old female postop bariatric surgery, hysterectomy yesterday. TECHNIQUE: Single contrast exam performed with 50 ml Isovue-370 contrast. The patient was premedicat ed prior to the exam due to history of anaphylaxis to shellfish. Patient was also having some type of hives when initially brought down for the study. Total fluoroscopy time: 1 minute 33 seconds. Total images: 33. FINDINGS: The patient swallowed oral contrast without difficulty or delay. Esophageal peristalsis and motility are within normal limits. There is prompt passage of contrast from the esophagus into the stomach w ith postsurgical change of sleeve gastrectomy demonstrate a satisfactory passage of contrast across t he sleeve to the distal stomach, and into the duodenum. There is no evidence of contrast extravasatio n to suggest leak. No postsurgical free air seen. IMPRESSION: No evidence of leak or significant obstruction status post sleeve gastrectomy.
[2021-08-28] MEDS: KETOROLAC 15 MG/ML 1 ML VIAL IVP SCH ×2 (17:12→23:47)
[2021-08-28] MEDS ORDERED: atenoloL 50 MG TAB PO SCH (21:00)
[2021-08-29] MEDS: HYDROmorphone 1 MG/ML 1 ML SYRINGE IVP PRN (00:14)
[2021-08-29] MEDS: ALBUTEROL NEBULIZED 2.5 MG/3 ML INHALATION SCH (03:13)
[2021-08-29] MEDS: 0.9% NACL WITH KCL 20 MEQ/L 1,000 ML IV SCH (05:05)
[2021-08-29] MEDS: KETOROLAC 15 MG/ML 1 ML VIAL IVP SCH (06:05)
[2021-08-29] MEDS: DEXAMETHASONE SOD PHOSPHATE 4 MG/ML 1 ML VIAL IVP SCH (06:05)
[2021-08-29] MEDS: ONDANSETRON 4 MG/2 ML VIAL IVP SCH (06:05)
[2021-08-29] MEDS: HYOSCYAMINE ORAL DROPS 1.875 MG/15 ML BOTTLE PO SCH (06:06)
[2021-08-29] MEDS: SIMETHICONE 40 MG/0.6 ML DROPS 2,000 MG/30 ML BOTTLE PO SCH (06:06)
[2021-08-29 07:03] VITALS: BP 135/74; PULSE 86; RESP 16; TEMP 98.1
[2021-08-29] MEDS: LACTATED RINGERS 1,000 ML IV SCH (07:24)
[2021-08-29] MEDS ORDERED: bisacodyL 5 MG TABLET.DR PO PRN (08:00)
[2021-08-29] MEDS: ENOXAPARIN 40 MG/0.4 ML SYRINGE SQ SCH (09:21)
[2021-08-29] MEDS: GABAPENTIN 400 MG CAP PO SCH (09:21)
[2021-08-29] MEDS: PANTOPRAZOLE 40 MG/10 ML VIAL IV SCH (09:21)
--- NOTE | 2021-08-29 15:46 | P.DS ---
Providers Date of admission: 08/27/21 09:26 Expected date of discharge: 08/29/21 Attending physician: Roxy Rodriguez Primary care physician: Carmelita Armando [facility] Course: Discharge diagnosis 1. Morbid obesity due to excess calories status post Robotic assisted daVinci Xi laparoscopic sleeve gastrectomy 2. Body mass index of 39.8 3. Hypertensive heart disease. 4. Neuropathy 5. Chronic back pain 6. Osteoarthritis of the knees Hospital course Shilpa Thomas is a 40-year-old female with morbid obesity. Patient is status post Robotic assisted daVinci Xi laparoscopic sleeve gastrectomy. Patient's upper GI shows no evidence of leak or obstruction. She is tolerating her bariatric clear liquid diet. She denies any nausea or vomiting. She is having bowel movements and flatus. She has been up and ambulating. She is afebrile. She is stable for discharge. Physician Padding Gluer note has been reviewed by physician. Signing provider agrees with the documented findings, assessment, and plan of care. Patient Condition at Discharge: Stable Plan - Discharge Summary Discharge Rx Participant: Yes New Discharge Prescriptions: New bisacodyL [Dulcolax] 5 mg PO DAILY PRN #10 tab PRN Reason: Constipation Omeprazole [PriLOSEC] 40 mg PO DAILY #30 cap Simethicone 40 mg/0.6 ml Drops [Mylicon Drops] 40 mg PO PCHS PRN #30 ml PRN Reason: Gas Acetaminophen Tab [Tylenol Tab] 1,000 mg PO Q6HR PRN #30 tablet PRN Reason: Pain Ondansetron Odt [Zofran Odt] 4 mg PO Q8HR PRN #9 tab PRN Reason: Nausea Continue Dextroamphetamine/Amphetamine [Adderall Xr] 20 mg PO 0300 Dextroamphetamine/Amphetamine [Adderall] 30 mg PO 0400,1200 Metaxalone [Skelaxin] 800 mg PO TID PRN PRN Reason: Pain Gabapentin [Neurontin] 800 mg PO QID Atenolol [Tenormin] 50 mg PO HS buPROPion [Wellbutrin] 200 mg PO QAM Amitriptyline HCl [Elavil] 40 mg PO HS Discontinued Cholecalciferol [Vitamin D3 (125 Mcg = 5000 Iu)] 4 cap PO DAILY Vitamin C/Biotin [Hair, Skin and Nails Chew] 2 tab PO HS Ibuprofen [Motrin] 800 mg PO DIRECTED PRN PRN Reason: Pain Multivitamin/Iron/Folic Acid [Centrum Women Tablet] 1 each PO DAILY Calcium Bri Chew 1 dose PO DAILY Discharge Medication List Dextroamphetamine/Amphetamine [Adderall Xr] 20 mg PO 0300 07/13/16 [History] Dextroamphetamine/Amphetamine [Adderall] 30 mg PO 0400,1200 07/13/16 [History] Atenolol [Tenormin] 50 mg PO HS 07/05/20 [History] Gabapentin [Neurontin] 800 mg PO QID 07/05/20 [History] Metaxalone [Skelaxin] 800 mg PO TID PRN 07/05/20 [History] Amitriptyline HCl [Elavil] 40 mg PO HS 08/23/21 [History] buPROPion [Wellbutrin] 200 mg PO QAM 08/23/21 [History] Acetaminophen Tab [Tylenol Tab] 1,000 mg PO Q6HR PRN #30 tablet 08/27/21 [Rx] Omeprazole [PriLOSEC] 40 mg PO DAILY #30 cap 08/27/21 [Rx] Ondansetron Odt [Zofran Odt] 4 mg PO Q8HR PRN #9 tab 08/27/21 [Rx] Simethicone 40 mg/0.6 ml Drops [Mylicon Drops] 40 mg PO PCHS PRN #30 ml 08/27/21 [Rx] bisacodyL [Dulcolax] 5 mg PO DAILY PRN #10 tab 08/27/21 [Rx] Follow up [facility](s[facility] [facility] [place] [facility] [place]31/21 9:00 am Patient Instructions/Handouts: Nutrition after Bariatric Surgery (GEN), Laparoscopic Sleeve Gastrectomy (GEN) Activity/Diet/Wound Care/Special Instructions: Liquid diet only for 2 weeks until September 10 No lifting over 4 pounds in 4 weeks, September 26September Shower. No soaking in bath tubs, until September 10 Please notify your surgeon if you develop nausea and vomiting including new onset of abdominal pain. Continue to use incentive spirometry to prevent pneumonias. Please continue to ambulate at home to prevent blood clots in legs. Follow-up at the bariatric center.Dressings to be discontinued by surgeon in the office. Drink 64 oz of fluid daily. Start protein shakes on . Notify bariatric center for temp over 101.0, increased pain, drainage from incisions. No straws or carbonated beverages. Liquid diet only. Sugar content should be less than 6 g to avoid dumping syndrome. Take MOM for constipation. CRUSH, OPEN, OR CUT TABLETS LARGER THAN A SIZE OF A TIC TAC Discharge Disposition: HOME SELF-CARE
== END 2021-08-29 11:19 | disposition home or self-care (01) | DRG 621 ==
LOC: 2ORMAIN 09:26 → 4SSUR 18:00
PROVIDERS: ADMIT Surgery Plastic and Reconstructive Surgery; ATTEND Surgery Plastic and Reconstructive Surgery
PROC: 8E0W4CZ Robotic Assisted Procedure of Trunk Region, Percutaneous Endoscopic Approach (ICD-10-PCS; 2021-08-27)
PROC: 0DJ08ZZ Inspection of Upper Intestinal Tract, Via Natural or Artificial Opening Endoscopic (ICD-10-PCS; 2021-08-27)
PROC: 0DB64Z3 Excision of Stomach, Percutaneous Endoscopic Approach, Vertical (ICD-10-PCS; principal; 2021-08-27 10:55)
DX: E66.01 Morbid (severe) obesity due to excess calories (principal); Z68.39 Body mass index [BMI] 39.0-39.9, adult; I11.9 Hypertensive heart disease without heart failure; G62.9 Polyneuropathy, unspecified; G89.29 Other chronic pain; M54.40 Lumbago with sciatica, unspecified side; M17.0 Bilateral primary osteoarthritis of knee; F90.9 Attention-deficit hyperactivity disorder, unspecified type; K21.9 Gastro-esophageal reflux disease without esophagitis; Z91.013 Allergy to seafood; Z79.899 Other long term (current) drug therapy; Z80.0 Family history of malignant neoplasm of digestive organs; Z85.41 Personal history of malignant neoplasm of cervix uteri; Z90.710 Acquired absence of both cervix and uterus; Z98.1 Arthrodesis status; Z88.6 Allergy status to analgesic agent; Z71.3 Dietary counseling and surveillance
CPT/HCPCS: 74240; 80051; 82310; 82565; 83735; 84100; 84520; 85025; 86850; 86900; 86901; 88307; 94640

== ENCOUNTER → 2021-08-31 | Outpatient (CLI) | payer BC ==
[~2021-08-31] MED LIST changes: -CHLORHEXIDINE GLUCONATE 15 ML CUP MUCOUS MEM PRN; -DEXAMETHASONE SOD PHOSPHATE 4 MG/ML 1 ML VIAL IV ONE; -ENOXAPARIN 40 MG/0.4 ML SYRINGE SQ PRN; -MIDAZOLAM 2 MG/2 ML VIAL IV PRN; -ONDANSETRON 4 MG/2 ML VIAL IVP ONE; -PANTOPRAZOLE 40 MG/10 ML VIAL IVP PRN; -SCOPOLAMINE 1 MG/72 HR PATCH TRANSDERM ONE; +SODIUM CHLORIDE 0.9% 1,000 ML IV SCH; +SODIUM CHLORIDE 0.9% 500 ML 500 ML in EMPTY BAG 1 BAG IV PRN
[2021-08-31 09:40] VITALS: PULSE 85; TEMP 97.9; BMI 39.4
[2021-08-31 09:43] VITALS: BP 140/87; RESP 18
[2021-08-31] MEDS: SODIUM CHLORIDE 0.9% 1,000 ML IV SCH ×2 (09:52→10:58)
--- NOTE | 2021-08-31 10:27 | P.BASOAP ---
Subjective Progress Note Date: 08/31/21 Patient seen and evaluated. She is obtaining fluids due to dehydration. She has appropriate left upper quadrant soreness. Abdominal binder present. Goals of dietary includes adequate protein intake. Adequate IV fluid hydration. Adequate oral intake of fluids. Follow-up described in 1-2 weeks. Patient just concerns for return to work. This closed the patient will be gone for 1 week of returning in 2 weeks. All questions addressed. Objective - Vital Signs Vital signs: Vital Signs Temp 97.9 F 08/31/21 09:41 Pulse 85 08/31/21 09:41 Resp 18 08/31/21 09:41 BP 140/87 08/31/21 09:41 Pulse Ox Intake & Output 08/30/21 08/31/21 08/31/21 18:59 06:59 18:59 Weight 108.409 kg Assessment/Plan Plan: Date: 08/31/21 Initial Weight: 105.8 kg Initial BMI: 38.5 Current Weight: 108.409 kg Current BMI: 39.4 Type of Surgery: Total Volume in Band: Previous Volume: Volume Removed: Volume Added: Band Size:
--- NOTE | 2021-08-31 10:30 | P.PN ---
Progress Note - Text Progress Note Date: 08/31/21 To whom it may concern: Shilpa Thomas is under my surgical care. She had surgery, August 27, 2021. She will need at least 4 weeks recovery with a 4 pounds exertional restriction. Anticipated return to work, October 012021. Regards, Roxy Rodriguez MD
== END | disposition home or self-care (01) ==
LOC: BARWHC3 09:08
PROVIDERS: ATTEND Surgery Plastic and Reconstructive Surgery
DX: E86.0 Dehydration (principal)
CPT/HCPCS: 96360; 96361; 99211

== ENCOUNTER → 2021-09-14 | Outpatient (CLI) | payer BC ==
[2021-09-14 09:25] VITALS: BP 113/79; PULSE 80; RESP 16; TEMP 97.6; BMI 37.0
--- NOTE | 2021-09-14 10:58 | P.BASOAP ---
Subjective Progress Note Date: 09/14/21 DATE OF SERVICE: 09/14/2021 CHIEF COMPLAINT: Status post sleeve gastrectomy HISTORY OF PRESENT ILLNESS: Shilpa Thomas is a 40-year-old female status post sleeve gastrectomy, 08/27/2021. She is 2 weeks out. She is clinically doing well. She reports left upper quadrant incision has improved. No reflux. No epigastric pain. No dysphagia. She denies any further symptoms of dehydration. At height of 5 feet 5.25 inches, her ideal body weight is 149 pounds. Highest weight 238 pounds, BMI 39.4. She comes in 224 pounds from 238 pounds, 2 weeks ago. She has lost 14 pounds in 2 weeks. Her body mass index is 37.1. She is 84 pounds overweight. PHYSICAL EXAM: VITAL SIGNS: Height 5 foot 5.25 inches, weight 224 pounds. BMI 37.1 Vital Signs Temp 97.6 F 09/14/21 09:22 Pulse 80 09/14/21 09:22 Resp 16 09/14/21 09:22 BP 113/79 09/14/21 09:22 Pulse Ox Intake & Output 09/14/21 09/15/21 09/15/21 18:59 06:59 18:59 Weight 101.831 kg GENERAL: Well-developed in no acute distress. HEENT: No scleral icterus. Extraocular movements grossly intact. Hears conversational speech. No nasal drainage. NECK: Supple without lymphadenopathy. CHEST: Nonlabored respirations with equal bilateral excursions. CARDIOVASCULAR: Tachycardia. Distal 2+ pulses. ABDOMEN: Obese, soft, nontender, nondistended. MUSCULOSKELETAL: No clubbing, cyanosis. NEURO: No focal or lateralizing signs. Cranial nerves 2 through 12 grossly within normal limits. PSYCH: Appropriate affect. Alert and oriented to person, place and time. SKIN: Good skin turgor. Well perfused. Final Pathologic Diagnosis PORTION OF STOMACH, SLEEVE GASTRECTOMY: Focal chronic gastritis with congestion. Morbid obesity clinically. No Helicobacter organisms seen on H+E staining. ASSESSMENT: 1. Morbid obesity due to excess calories 2. Body mass index of 38.5 3. Hypertensive heart disease. 4. Neuropathy 5. Dietary surveillance and counseling 6. Hypercholesterolemia 7. Vitamin D deficiency 8. Status post sleeve gastrectomy PLAN: 1. Recommend full recovery at minimum 4 weeks prior to return to work. Patient agreeable. 2. One month recovery including labs described. Objective - Vital Signs Vital signs: Vital Signs Temp 97.6 F 09/14/21 09:22 Pulse 80 09/14/21 09:22 Resp 16 09/14/21 09:22 BP 113/79 09/14/21 09:22 Pulse Ox Intake & Output 09/13/21 09/14/21 09/14/21 18:59 06:59 18:59 Weight 101.831 kg Assessment/Plan Plan: Date: 09/14/21 Initial Weight: 105.8 kg Initial BMI: 38.5 Current Weight: 101.831 kg Current BMI: 37.0 Type of Surgery: Total Volume in Band: Previous Volume: Volume Removed: Volume Added: Band Size:
== END | disposition home or self-care (01) ==
LOC: BARWHC3 09:12
PROVIDERS: ATTEND Surgery Plastic and Reconstructive Surgery
DX: E66.01 Morbid (severe) obesity due to excess calories (principal); I11.9 Hypertensive heart disease without heart failure; G62.9 Polyneuropathy, unspecified; Z71.3 Dietary counseling and surveillance; E78.00 Pure hypercholesterolemia, unspecified; E55.9 Vitamin D deficiency, unspecified; Z98.890 Other specified postprocedural states; Z68.38 Body mass index [BMI] 38.0-38.9, adult
CPT/HCPCS: 99211

== ENCOUNTER → 2021-12-19 | Outpatient (CLI) | payer BC ==
[2021-12-19 13:05] VITALS: BP 132/82; PULSE 97; TEMP 97.7; BMI 32.3
--- NOTE | 2021-12-19 13:16 | P.BASOAP ---
Subjective Progress Note Date: 12/19/21 She has lost 40 pounds in 3 months. NO GERD. No dysphagia. Protein intake is 80 grams. No hair loss. Get labs. Doing well. No nausea. Wean omeprazole plan. No hernia. Scar tissue. May need lysis of adhesions due to scar tissue at left upper. Objective - Vital Signs Vital signs: Vital Signs Temp 97.7 F 12/19/21 13:00 Pulse 97 12/19/21 13:00 Resp BP 132/82 12/19/21 13:00 Pulse Ox FiO2 Intake & Output 12/18/21 12/19/21 12/19/21 18:59 06:59 18:59 Weight 88.904 kg Assessment/Plan Plan: Date: 12/19/21 Initial Weight: 105.8 kg Initial BMI: 38.5 Current Weight: 88.904 kg Current BMI: 32.3 Type of Surgery: Total Volume in Band: Previous Volume: Volume Removed: Volume Added: Band Size:
[2021-12-19 13:56] LABS: INR 0.9 (<1.2); Partial Thromboplastin Time 22.4 sec (22.0-30.0); Prothrombin Time 9.6 sec (9.0-12.0)
[2021-12-19 18:09] LABS: HCT 45.1 % (37.2-46.3); HGB 13.7 g/dL (12.0-15.0); MCH 26.8 pg (27.0-32.0); MCHC 30.4 g/dL (32.0-37.0); MCV 88.3 fL (80.0-97.0); Mean Platelet Volume 9.9 fL (9.5-12.2); NRBC Per 100 WBC 0 /100 WBCS (0.0-0.0); Platelet Count 292 X 10*3/uL (140-440); RBC 5.11 X 10*6/uL (4.10-5.20); RDW 13.8 % (11.5-14.5); WBC 6.65 X 10*3/uL (4.50-10.00)
[2021-12-19 18:28] LABS: % Iron Saturation 29.01 (12.00-45.00); Iron 106 ug/dL (50-170); Magnesium 2.3 mg/dL (1.5-2.4); Total Iron Binding Capacity 365 ug/dL (228-460)
[2021-12-19 18:29] LABS: ALT 33 U/L (8-44); AST 23 U/L (13-35); African American GFR (CKD) 115.6 (60.0-200.0); Albumin 4.6 g/dL (3.8-4.9); Albumin/Globulin Ratio 1.63 (1.60-3.17); Alkaline Phosphatase 80 U/L (41-126); Blood Urea Nitrogen 10.3 mg/dL (9.0-27.0); Calcium 9.6 mg/dL (8.7-10.3); Carbon Dioxide 24.3 mmol/L (20.0-27.5); Chloride 105 mmol/L (96-109); Globulin 2.8 g/dL (1.6-3.3); Glucose 94 mg/dL (70-110); Non-African American GFR(CKD) 99.8 (60.0-200.0); Phosphorus 3.3 mg/dL (2.4-5.1); Potassium 4.5 mmol/L (3.5-5.5); Sodium 140 mmol/L (135-145); Total Protein 7.4 g/dL (6.2-8.2)
[2021-12-19 18:50] LABS: Chol/HDL Ratio 3.33 Ratio; LDL Cholesterol,Calculated 141.2 mg/dL (0.0-131.0)
[2021-12-19 18:51] LABS: Prealbumin 31.1 mg/dL (18.0-42.0)
[2021-12-20 12:39] LABS: Zinc, Serum 84 ug/dL (60-130)
[2021-12-21 06:39] LABS: Vit B1(Thiamine) 98 ug/L (38-122)
== END | disposition home or self-care (01) ==
LOC: BARWHC3 12:49
PROVIDERS: ATTEND Surgery Plastic and Reconstructive Surgery
DX: E66.01 Morbid (severe) obesity due to excess calories (principal); E89.1 Postprocedural hypoinsulinemia; D50.9 Iron deficiency anemia, unspecified; K91.2 Postsurgical malabsorption, not elsewhere classified; E44.0 Moderate protein-calorie malnutrition; E44.1 Mild protein-calorie malnutrition; E45 Retarded development following protein-calorie malnutrition; E46 Unspecified protein-calorie malnutrition; E55.9 Vitamin D deficiency, unspecified; K74.1 Hepatic sclerosis; N19 Unspecified kidney failure; T56.894A Toxic effect of other metals, undetermined, initial encounter; K50.90 Crohn's disease, unspecified, without complications
CPT/HCPCS: 80053; 80061; 82306; 82525; 82607; 82728; 82746; 83036; 83540; 83550; 83735; 83970; 84100; 84134; 84255; 84425; 84443; 84590; 84630; 85027; 85610; 85730; 97802; 99211

== ENCOUNTER → 2022-04-02 | Outpatient (CLI) | payer BC ==
--- NOTE | 2022-04-03 08:40 | MM ---
Reason for Exam: Screening (asymptomatic). Baseline mammogram. Patient History: Menarche at age 13. Hysterectomy at age 36. Maternal aunt had breast cancer. Risk Values: Jazmin 5 year model risk: 0.4%. NCI Lifetime model risk: 6.6%. Prior Study Comparison: Patient's first Mammogram. No prior studies available for comparison. Tissue Density: The breast tissue is heterogeneously dense. This may lower the sensitivity of mammography. Findings: Analyzed By CAD. There is no suspicious group of microcalcifications or suspicious mass in either breast. Overall Assessment: Negative, BI-RAD 1 Management: Screening Mammogram of both breasts in 1 year. A clinical breast exam by your physician is recommended on an annual basis and results should be correlated with mammographic findings. Electronically signed and approved by: Zay Roblero M.D.
== END | disposition home or self-care (01) ==
LOC: RADMAMWWP 06:57
PROVIDERS: ATTEND Family Medicine
DX: Z12.31 Encounter for screening mammogram for malignant neoplasm of breast (principal); Z80.3 Family history of malignant neoplasm of breast
CPT/HCPCS: 77063; 77067

== ENCOUNTER → 2022-05-08 | Outpatient (CLI) | payer BC ==
[2022-05-08 14:31] LABS: INR 0.9 (<1.2); Partial Thromboplastin Time 25.4 sec (22.0-30.0); Prothrombin Time 9.8 sec (9.0-12.0)
[2022-05-08 18:09] LABS: HCT 40.5 % (37.2-46.3); HGB 13.1 g/dL (12.0-15.0); MCH 28.8 pg (27.0-32.0); MCHC 32.3 g/dL (32.0-37.0); Mean Platelet Volume 9.4 fL (9.5-12.2); NRBC Per 100 WBC 0 /100 WBCS (0.0-0.0); Platelet Count 315 X 10*3/uL (140-440); RBC 4.55 X 10*6/uL (4.10-5.20); RDW 13.2 % (11.5-14.5); WBC 8.26 X 10*3/uL (4.50-10.00)
[2022-05-08 18:45] LABS: % Iron Saturation 32.92 (12.00-45.00); ALT 12 U/L (8-44); AST 13 U/L (13-35); African American GFR (CKD) 100.8 (60.0-200.0); Albumin 4.6 g/dL (3.8-4.9); Albumin/Globulin Ratio 2.15 (1.60-3.17); Alkaline Phosphatase 74 U/L (41-126); BUN/Creat Ratio 12.65 Ratio (12.00-20.00); Blood Urea Nitrogen 10.5 mg/dL (9.0-27.0); Calcium 10.1 mg/dL (8.7-10.3); Carbon Dioxide 27.3 mmol/L (20.0-27.5); Chloride 106 mmol/L (96-109); Ferritin 96.6 ng/mL (10.0-291.0); Globulin 2.1 g/dL (1.6-3.3); Glucose 99 mg/dL (70-110); Iron 118 ug/dL (50-170); Magnesium 2.1 mg/dL (1.5-2.4); Phosphorus 3.2 mg/dL (2.4-5.1); Potassium 4.3 mmol/L (3.5-5.5); Sodium 146 mmol/L (135-145); Total Iron Binding Capacity 358 ug/dL (228-460); Total Protein 6.7 g/dL (6.2-8.2)
[2022-05-08 18:47] LABS: Chol/HDL Ratio 3.03 Ratio; LDL Cholesterol,Calculated 118.7 mg/dL (0.0-131.0); Prealbumin 26.7 mg/dL (18.0-42.0)
[2022-05-09 13:14] LABS: Zinc, Serum 72 ug/dL (60-130)
[2022-05-10 08:17] LABS: Vit B1(Thiamine) 96 ug/L (38-122)
== END | disposition home or self-care (01) ==
LOC: LABWHC1 12:47
PROVIDERS: ATTEND Surgery Plastic and Reconstructive Surgery
DX: E89.1 Postprocedural hypoinsulinemia (principal); E66.01 Morbid (severe) obesity due to excess calories; D50.8 Other iron deficiency anemias; K91.2 Postsurgical malabsorption, not elsewhere classified; E44.0 Moderate protein-calorie malnutrition; E45 Retarded development following protein-calorie malnutrition; E55.9 Vitamin D deficiency, unspecified; K74.1 Hepatic sclerosis; N19 Unspecified kidney failure; T56.894A Toxic effect of other metals, undetermined, initial encounter; K50.90 Crohn's disease, unspecified, without complications
CPT/HCPCS: 36415; 80053; 80061; 82306; 82525; 82607; 82728; 82747; 83036; 83540; 83550; 83735; 83970; 84100; 84134; 84255; 84425; 84443; 84630; 85027; 85610; 85730

== ENCOUNTER → 2022-05-08 | Outpatient (CLI) | payer BC ==
[2022-05-08 13:28] VITALS: BP 128/84; PULSE 92; TEMP 97.8; BMI 31.4
--- NOTE | 2022-05-08 14:25 | P.BASOAP ---
Subjective Progress Note Date: 05/08/22 She no longer has LUQ pain. She is eating eggs daily. She is off Omeprazole. She is losing size and less weight. She denies GERD. No reflux. She is working out more and being active. Labs already done. She has lost another 10 pounds in 3 months. She is doing well. Objective - Vital Signs Vital signs: Vital Signs Temp 97.8 F 05/08/22 13:27 Pulse 92 05/08/22 13:27 Resp BP 128/84 05/08/22 13:27 Pulse Ox FiO2 Intake & Output 05/07/22 05/08/22 05/08/22 18:59 06:59 18:59 Weight 86.183 kg Assessment/Plan Plan: Date: 05/08/22 Initial Weight: 105.8 kg Initial BMI: 38.5 Current Weight: 86.183 kg Current BMI: 31.4 Type of Surgery: Total Volume in Band: Previous Volume: Volume Removed: Volume Added: Band Size:
== END ==
LOC: BARWHC3 12:45
PROVIDERS: ATTEND Surgery Plastic and Reconstructive Surgery
DX: E66.01 Morbid (severe) obesity due to excess calories (principal); Z91.013 Allergy to seafood; Z68.31 Body mass index [BMI] 31.0-31.9, adult
CPT/HCPCS: 99211

== ENCOUNTER → 2023-07-29 | Outpatient (CLI) | payer OTHER ==
--- NOTE | 2023-07-30 17:49 | MM ---
Reason for Exam: Screening (asymptomatic). Last mammogram was performed 1 year(s) and 4 month(s) ago. Patient History: Menarche at age 13. First Full-Term at age 23. Hysterectomy at age 36. Maternal aunt had breast cancer. Risk Values: Jazmin 5 year model risk: 0.6%. NCI Lifetime model risk: 8.0%. Prior Study Comparison: 04/02/2022 Bilateral MG 3D screening mammo w/cad, [facility]. Tissue Density: The breasts are heterogeneously dense, which may obscure small masses. Findings: Analyzed By CAD. There is no suspicious group of microcalcifications or new suspicious mass in either breast. Overall Assessment: Negative, BI-RAD 1 Management: Screening Mammogram of both breasts in 1 year. . Patient should continue monthly self-breast exams. A clinical breast exam by your physician is recommended on an annual basis. This exam should not preclude additional follow-up of suspicious palpable abnormalities. Note on Jazmin scores and lifetime risk: 1. A Jazmin score greater than 3% is considered moderate risk. If this is the case, consider specialist referral to assess eligibility for a risk reducing agent. 2. If overall lifetime risk for the development of breast cancer is 20% or higher, the patient may qualify for future screening with alternating mammogram and breast MRI. Electronically signed and approved by: Ambrosio Christianson M.D. Radiologist
== END | disposition home or self-care (01) ==
LOC: RADMAMWWP 06:59
PROVIDERS: ATTEND Obstetrics & Gynecology Obstetrics
DX: Z12.31 Encounter for screening mammogram for malignant neoplasm of breast (principal); Z80.3 Family history of malignant neoplasm of breast
CPT/HCPCS: 77063; 77067

== ENCOUNTER → 2024-04-08 | Outpatient (CLI) | payer OTHER ==
[2024-04-08 08:39] VITALS: BP 130/70; PULSE 91; RESP 19; TEMP 97.6
--- NOTE | 2024-04-08 14:17 | P.PAINPG ---
PQRS Measure Charge Sheet Comment: HISTORY OF PRESENT ILLNESS: A 43 yr old female as a referral from Dr Ramirez presents today w severe and chronic LBP> 1 yr secondary to radiculopathy, spondylosis and facet arthropathy without myelopathy for evaluation. Pt states pain level is provoked at 10 /10 in intensity, constant, localized in the lumbar spine, predominantly axial, sharp in character w occasional shooting pain towards the L groin and LLE. Pain is provoked by standing/ walking for periods > 20 min. Pain is alleviated by chiropractic treatments semi monthly Jul - Jan 2024, massage therapy monthly since 2018 which she is currently in, medications (Groton 10/325mg, Ibu), topical CBD oil, heat, ice, repositioning and rest . Oswestry axial pain score at 26. PMH: OA, Cervical CA, HTN, Hyperlipidemia, ADD/ ADHD PSH: L5-S1 Fusion, Gastric Sleeve (2021), Appendectomy, Section, Hysterectomy SH: Never smoker, Occ ETOH use, No illicit drug use FH: Fa- Liver CA All: See list Meds: See list REVIEW OF ORGAN SYSTEMS: CONSTITUTIONAL: No fevers or chills. No recent weight loss. NEUROLOGICAL: + numbness and tingling along the distal extremities. No seizure disorders or headaches. MUSCULOSKELETAL: + pain PSYCHIATRIC: Denies current depression or suicidal thoughts. Physical Examinations : Constitutional : Cooperative , not in acute distress . Neurologic : Cranial nerve II to XII intact. No focal neurological deficits. Psychiatric : alert & oriented x 3. Matching mood & appropriate affect. Judgment & insight intact. Musculoskeletal : Cervical Spine Motor strength in the deltoid and biceps: Normal right side. Normal Left side Motor strength biceps and the wrist extensors: Normal right side . Normal left side Motor strength in the triceps muscle: Normal right side. Normal left side Deep tendon reflexes: Normal at the biceps. Normal at Brachioradialis. Normal at triceps Vertebral body tenderness to deep palpation over Cervical facet loading test: positive bilaterally Spurling test: positive bilaterally Neck distraction test: positive bilaterally Aleksandr sign: positive bilaterally Lumbar spine +Incisional scar intact Motor strength lower extremities ,thigh and legs 5/5 Right side , 5/5 Left side Deep tendon reflexes : Normal Knee Jerk. Normal Ankle Jerk Vertebral body tenderness over L5 Keating Test positive L > R L5-S1 Lumbar facet Loading Test: positive Right / positive Left Range of motion of the lumbar spine Fl exion 30 degrees, extension 10 degrees Straight Leg Raise test: Left/ Right positive at degrees Luigi test: positive right / positive left. Severe tenderness over the Sacroiliac joint on the Right / Left sides Gaenslen test: positive bilaterally Seated flexion test: positive bilaterally. Sacral spine : Severe tenderness over the Sacroiliac joint: right side / left side Range of motion: Flexion of the lumbar spine <60 degrees Range of motion: Extension of the lumbar spine <20 degrees Gaenslen's Test positive Luigi test: positive right side / left side Thigh Thrust Test Sacral Thrust Test Imaging: MRI contrast/ non contrast lumbar spine from 02/14/24 reviewed Assessment/ Plan : Lumbar radiculopathy Recommendation of Caudal NADIA w Lysis. Risks, benefits of procedure discussed and patient verbalized understanding. Admits to anti- coagulant use or medical history of diabetes. Protocol for discontinuation/ continuation of medications nitesh procedure discussed. All questions answered. I have spent greater than 30 minutes on patient care today. Dr Kirkland was available by phone for the evaluation of this patient. The time was used to review the medical records including relevant urine studies and Prescription history (MAPs), review of the available imaging, evaluation and examination of the patient, coordination of care with the medical staff and if applicable referring physicians, as well as creation of the medical record PQRS Narrative: Smoking Status Never smoker Home Medications: Ambulatory Orders Dextroamphetamine/Amphetamine [Adderall] 30 mg PO 0400,1200 07/13/16 Gabapentin [Neurontin] 800 mg PO QID 07/05/20 Metaxalone [Skelaxin] 800 mg PO TID PRN 07/05/20 buPROPion [Wellbutrin] 400 mg PO QAM 08/23/21 Acetaminophen Tab [Tylenol Tab] 1,000 mg PO Q6HR PRN #30 tablet 08/27/21 atenoloL [Tenormin] 50 mg PO DAILY 09/26/21 Biotin 5 mg PO DAILY 12/19/21 Melatonin 10 mg PO HS 12/19/21 Multivitamins, Thera [Multivitamin (formulary)] 1 tab PO DAILY 12/19/21 diazePAM [Valium] 5 mg PO DAILY PRN 1 Days #2 tab 04/08/24 Controlled Substance Measures - Controlled Substance Measures Is patient prescribed a controlled substance at discharge?: Yes When asked, does pt state using other controlled substances?: Yes If prescribed controlled substance>3 days was MAPS reviewed?: Prescribed <3 Days
== END ==
LOC: PNWHC3 07:47
PROVIDERS: ATTEND Specialist
DX: M54.16 Radiculopathy, lumbar region (principal); Z91.013 Allergy to seafood
CPT/HCPCS: 99211

== ENCOUNTER 2024-05-07 09:34 | Day surgery (SDC) | payer OTHER ==
[2024-04-29 10:09] VITALS: BMI 25.8
[~2024-05-07 09:34] MED LIST changes: +LACTATED RINGERS 1,000 ML IV SCH; -SODIUM CHLORIDE 0.9% 1,000 ML IV SCH; -SODIUM CHLORIDE 0.9% 500 ML 500 ML in EMPTY BAG 1 BAG IV PRN
[2024-05-07 10:15] VITALS: TEMP 97.6
[2024-05-07] MEDS: LACTATED RINGERS 1,000 ML IV SCH (10:25)
[2024-05-07] MEDS: FAMOTIDINE 20 MG/2 ML VIAL IV STA (10:30)
[2024-05-07] MEDS: diphenhydrAMINE 50 MG/ML 1 ML VIAL IVP STA (10:31)
[2024-05-07] MEDS: HYDROCORTISONE SUCCINATE 100 MG/2 ML VIAL IVP STA (10:35)
[2024-05-07] MEDS: IV FLUID CONTINUATION 1,000 ML IV ONE ×2 (10:45→12:06)
[2024-05-07] MEDS ORDERED: fentaNYL (PF) 50 MCG/ML 2 ML AMP ONE (11:14)
[2024-05-07] MEDS ORDERED: IOPAMIDOL M300 15ML VIAL ONE (11:14)
[2024-05-07 12:13] VITALS: RESP 16
[2024-05-07] MEDS: HYDROcodone/APAP 10-325MG 1 EACH TAB PO ONE (12:16)
--- NOTE | 2024-05-07 12:17 | P.PCN ---
Description of Procedure: Preprocedure diagnosis. Postlaminectomy syndrome. Lumbar radiculopathy. Postprocedure diagnosis. As above. Procedure done. Injection of radiocontrast material into caudal epidural space. Caudal epidurogram. Lysis of epidural scar with cauda/brevi cath catheter. Caudal epidural steroid injection. Anesthesia. Local infiltration anesthesia. Fentanyl 200 microgram IV.Continuous pulse ox, EKG, blood pressure, verbal communication was maintained with the patient in OR Blood loss. None. Indication. Discussed the procedure and possible complications which may include infection bleeding nerve damage paralysis and aggravation of pain. Patient understands all questions were answered. Procedure note. IV antibiotic was given preoperative area. Contrast allergy premedication with Benadryl 50 mg, Solu-Cortef 200 mg, Pepcid 20 mg IV given 1 hour preop .After getting consent patient was taken to the OR in prone position. Back prepped with chlorhexidine x 3. After injecting 10 cc of plain 1% lidocaine subcutaneously, a 17-gauge needle with flexible introducer plastic cannula was introduced through the sacral hiatus into the caudal epidural space. Multiple attempts before finally able to enter caudal epidural space. 3 cc of Isovue 300 contrast was injected. Contrast was deficient on the left side at L4-5 and L5-S1 area. Needle was taken out only keeping the flexible introducer cannula. 19-gauge brevi cath was introduced through the introducer cannula multiple times. Again 2 cc of Isovue-M 300 contrast was injected. Previous deficient contrast area was filled out this time. Minimal contrast was used considering patient's allergy to shellfish. 3 cc solution was injected through the bravi cath cannula now. Solution consists of 2 cc of preservative-free normal saline mixed with 1 cc of 80 mg Depo-Medrol. Both the catheter and introducer cannula was removed. Disposition. Patient tolerated the procedure well. No complication. Discharged home in stable condition.
--- NOTE | 2024-05-07 12:50 | FL ---
Fluoroscopy History: Caudal Inj Caudal Inj 4.50min fluoro time 78.41 [facility], , 05/07/2024 12:48 PM
[2024-05-07 12:56] VITALS: BP 109/70; PULSE 93
== END 2024-05-07 13:07 | disposition home or self-care (01) ==
LOC: ORPAIN 09:34
PROVIDERS: ATTEND Pain Medicine Interventional Pain Medicine
DX: M54.16 Radiculopathy, lumbar region (principal); M96.1 Postlaminectomy syndrome, not elsewhere classified; Z91.013 Allergy to seafood; Z88.8 Allergy status to other drugs, medicaments and biological substances; Z79.1 Long term (current) use of non-steroidal anti-inflammatories (NSAID); Z90.710 Acquired absence of both cervix and uterus; Z79.899 Other long term (current) drug therapy
CPT/HCPCS: 62264; J1200; J1720; J3010; J3490; Q9967; C1894

== ENCOUNTER 2024-08-28 18:58 | Emergency (ER) | payer OTHER ==
--- NOTE | 2024-08-28 20:10 | CT ---
EXAMINATION TYPE: CT lumbar spine wo con DATE OF EXAM: 08/28/2024 7:41 PM COMPARISON: None. CLINICAL INDICATION: Female, 43 years old with history of Pain, difficulty ambulating, Increasing low back pain. Left leg numbness. Hx of back injury and surgery., pain TECHNIQUE: CT of the lumbar spine is performed on a spiral scan at 3 mm thick sections. Reconstructed images are performed in the coronal and sagittal planes. Contrast used: mL of , (none if empty) Oral contrast used: (none if empty) CT DLP: 862.2 mGycm, Automated exposure control for dose reduction was used. FINDINGS: Fixation pedicle screws are present L5-S1. Disc spacers present L5-S1. T12-L1: No focal disc herniation or significant disc bulge is evident. No spinal canal stenosis or neural foraminal stenosis is present. L1-L2: No focal disc herniation or significant disc bulge is evident. No spinal canal stenosis or n eural foraminal stenosis is present L2-L3: Mild disc bulge is present with mild anterior thecal sac compression. No AP spinal canal steno sis is present. Neural foramen are patent. L3-L4: Broad-based disc bulge is present with moderate anterior thecal sac flattening. No AP spinal c anal stenosis is present. Mild facet hypertrophy and ligamentum flavum laxity is present. There is mi ld foraminal narrowing present. L4-L5: Broad-based disc bulge with anterior thecal sac compression. Some ligamentum flavum laxity may be present. There is some difficulty evaluating for stenosis with the marking artifact. No obvious s evere stenosis evident. L5-S1: Disc spacers present. No focal disc herniation or significant disc bulge is evident. No spinal canal stenosis is present. Laminectomy is present. Vertebral alignment appears normal. IMPRESSION: 1. Mild disc bulging L2-3 through L4-5. 2. Some foraminal narrowing present at L3-4. 3. Beam hardening artifact at L4-5 somewhat limits evaluation of normal. [facility], , 08/28/2024 8:08 PM
--- NOTE | 2024-08-28 20:10 | ED ---
Back Pain HPI - General Chief Complaint: Back Pain/Injury Stated Complaint: back pain Time Seen by Provider: 08/28/24 19:18 Source: patient, RN notes reviewed Mode of arrival: ambulatory Limitations: no limitations - History of Present Illness Initial Comments: This is a 43-year-old female who presents to the emergency department for low back pain. Patient states that she has an ongoing history of back problems and previously had a lumbar fusion. She has had problems with back pain for a couple of months, but states that over the last week it has gotten much more severe and this is making it difficult for her to go about her daily routine. She does have left lower extremity radiculopathy as well, but states that this has been an issue since June. Denies any new injuries. Denies any loss of bowel/bladder control or saddle anesthesia. She takes Bethesda 10 mg 3 times daily. She does also have prescriptions for gabapentin and Skelaxin, but has not been taking them. MD Complaint: back pain - Related Data Home Medications Medication Instructions Recorded Confirmed Dextroamphetamine/Amphetamine 30 mg PO 0400,1200 07/13/16 05/07/24 [Adderall] Gabapentin [Neurontin] 800 mg PO QID 07/05/20 05/07/24 Metaxalone [Skelaxin] 800 mg PO TID PRN 07/05/20 05/07/24 buPROPion [Wellbutrin] 400 mg PO QAM 08/23/21 05/07/24 atenoloL [Tenormin] 50 mg PO DAILY 09/26/21 05/07/24 Multivitamins, Thera [Multivitamin 1 tab PO DAILY 12/19/21 05/07/24 (formulary)] HYDROcodone/APAP 10-325MG [[place]da 1 tab PO TID PRN 04/29/24 05/07/24 10-325] Previous Rx's Medication Instructions Recorded diazePAM [Valium] 5 mg PO DAILY PRN 1 Days #2 tab 04/08/24 HYDROcodone/APAP 5-325MG [[place] 1 tab PO Q6HR PRN 3 Days #12 tab 08/28/24 5-325] Ketorolac [Toradol] 10 mg PO Q6HR PRN #15 tab 08/28/24 predniSONE 50 mg PO DAILY 5 Days #5 tab 08/28/24 Allergies Allergy/AdvReac Type Severity Reaction Status Date / Time shellfish derived [Shellfish] Allergy Anaphylaxis Verified 08/28/24 19:02 Review of Systems ROS Statement: Those systems with pertinent positive or pertinent negative responses have been documented in the HPI. ROS Other: All systems not noted in ROS Statement are negative. Past Medical History Past Medical History: Cancer Additional Past Medical History / Comment(s): Hx cervical cancer, stage 0 - 2018. Hx broken right foot, no surgery. History of Any Multi-Drug Resistant Organisms: None Reported Past Surgical History: Back Surgery, Bariatric Surgery, Section, Hysterectomy Additional Past Surgical History / Comment(s): L5-S1 fusion. sleeve gastrectomy 08-27-21, PAIN CLINIC PROCEDURE YEARS AGO PRIOR TO BACK SX, Past Anesthesia/Blood Transfusion Reactions: No Reported Reaction Past Psychological History: ADD/ADHD Smoking Status: Never smoker - Past Family History Father Family Medical History: Cancer General Exam Limitations: no limitations General appearance: alert, in no apparent distress Head exam: Present: atraumatic, normocephalic, normal inspection Respiratory exam: Present: normal lung sounds bilaterally. Absent: respiratory distress, wheezes, rales, rhonchi, stridor Cardiovascular Exam: Present: regular rate, normal rhythm Neurological exam: Present: alert, oriented X3, CN II-XII intact Psychiatric exam: Present: normal affect, normal mood Skin exam: Present: warm, dry, intact, normal color. Absent: rash Course Vital Signs 08/28/24 08/28/24 18:59 21:57 Temperature 97.7 F 98.7 F Pulse Rate 93 79 Respiratory 18 16 Rate Blood Pressure 145/89 132/89 O2 Sat by Pulse 100 95 Oximetry Medical Decision Making - Medical Decision Making This is a 43 year old female who presents to the emergency department for back pain. Was pt. sent in by a medical professional or institution? @ -No Did you speak to anyone other than the patient for history? @ -No Did you review nursing and triage notes? @ -Yes, and I agree, it is accurate with regards to the patient's symptoms. Were old charts reviewed? @ -No Differential Diagnosis? @ -Differential Back Pain: Strain, zoster, cauda equina syndrome, epidural abscess, vertebral osteomyelitis, discitis, fracture, subluxation, disc herniation, DJD, spinal stenosis, dissection, AAA, pancreatitis, peptic ulcer disease, pyelonephritis, kidney stone, this is not meant to be an all-inclusive list. EKG interpreted by me (3pts min.)? @ -Not obtained X-rays interpreted by me (1pt min.)? @ -Not obtained CT interpreted by me (1pt min.)? @ -CT scan of the lumbar spine obtained. My interpretation identifies no acute fractures. U/S interpreted by me (1pt. min.)? @ -Not obtained What testing was considered but not performed? (CT, X-rays, U/S, labs)? Why? @ -None What meds were considered but not given? Why? @ -None Did you discuss the management of the patient with other professionals? @ -No Did you reconcile home meds? @ -No Was smoking cessation discussed for >3mins.? @ -No Was critical care preformed (if so, how long)? @ -No Were there social determinants of health that impacted care today? How? (Homelessness, low income, unemployed, alcoholism, drug addiction, transportation, low edu. Level, literacy, decrease access to med. care, prison, rehab)? @ -No Was there de-escalation of care discussed even if they declined? (Discuss DNR or withdrawal of care, Hospice)? @ -No What co-morbidities impacted this encounter? (DM, HTN, Smoking, COPD, CAD, Cancer, CVA, Hep., AIDS, mental health diagnosis, sleep apnea, morbid obesity)? @ -DDD Was patient admitted / discharged? @ -Discharged. CT scan of the lumbar spine obtained revealing broad-based disc bulges and foraminal narrowing. Findings reviewed with the patient. Advised that we can try a course of prednisone to see if that improves the radiculopathy symptoms. She inquired about medication for breakthrough pain and is opioid tolerant. Advised that we can try Bethesda 5 mg for breakthrough pain. I am not sure if this can be filled or not given that she is already taking hydrocodone. This was written to be taken for breakthrough pain only with the understanding that it may or may not be filled depending on the pharmacy policy. Toradol prescribed as well. Also advised she try taking her gabapentin and Skelaxin that she has at home. Information for orthopedic follow-up provided. Patient discharged home in stable condition. Case discussed with ED attending Dr. Bayudan. Return precautions reviewed in depth, the patient is instructed to return to the emergency department with any new, worsening, or concerning symptoms. Patient verbalized understanding. Undiagnosed new problem with uncertain prognosis? @ -None Drug Therapy requiring intensive monitoring for toxicity (Heparin, Nitro, Insulin, Cardizem)? @ -None Were any procedures done? @ -None Diagnosis/symptom? @ -Lumbar disc herniation, spinal stenosis Acute, or Chronic, or Acute on Chronic? @ -Acute Uncomplicated (without systemic symptoms) or Complicated (systemic symptoms)? @ -Uncomplicated Side effects of treatment? @ -None Exacerbation, Progression, or Severe Exacerbation] @ -Not applicable Poses a threat to life or bodily function? @ -Yes, the pain is limiting her ability to function - Radiology Data Radiology results: report reviewed, image reviewed Disposition Clinical Impression: Lumbar disc herniation, Spinal stenosis, Lumbar radiculopathy Disposition: HOME SELF-CARE Instructions (If sedation given, give patient instructions): Lumbar Disc Herniation (ED), Lumbar Radiculopathy (ED) Additional Instructions: Return to the emergency department with any new, worsening, or concerning symptoms. Take the prednisone daily for 5 days. Take the Toradol with Tylenol as needed for pain relief. If you choose to take the Toradol, do not take any other anti-inflammatories such as ibuprofen, take one or the other. Take the Bethesda prescribed sparingly for breakthrough pain. Also consider trying the gabapentin and Skelaxin you have at home again. You can reach out to the enrichment specialist listed below for reevaluation of your ongoing symptoms as well. Follow up with your primary care provider in 1-2 days. Prescriptions: HYDROcodone/APAP 5-325MG [Bethesda 5-325] 1 tab PO Q6HR PRN 3 Days #12 tab PRN Reason: Breakthrough Pain predniSONE 50 mg PO DAILY 5 Days #5 tab Ketorolac [Toradol] 10 mg PO Q6HR PRN #15 tab PRN Reason: Pain Is patient prescribed a controlled substance at d/c from ED?: Yes When asked, does pt state using other controlled substances?: Yes If prescribed controlled substance>3 days was MAPS reviewed?: Prescribed <3 Days Referrals: Glynn Ramirez MD [Primary Care Provider] - 1-2 days Devan Viera DO [Doctor of Osteopathic Medicine] - 1-2 days Lalo Gaines DO [Doctor of Osteopathic Medicine] - 1-2 days Time of Disposition: 21:10
[2024-08-28] MEDS: DEXAMETHASONE SOD PHOSPHATE 10 MG/ML 1 ML VIAL IVP STA (20:22)
[2024-08-28] MEDS: ORPHENADRINE 30 MG/ML 2 ML VIAL IVP STA (20:22)
[2024-08-28] MEDS: KETOROLAC 15 MG/ML 1 ML VIAL IVP STA ×2 (20:22→21:51)
[2024-08-28] MEDS: HYDROmorphone 1 MG/ML 1 ML SYRINGE IVP STA ×2 (20:23→21:50)
[2024-08-28] MEDS: LIDOCAINE 4% PATCH TOPICAL ONE (20:33)
[2024-08-28] MEDS: traMADol 50 MG STARTER PACK 3 TAB BTL PO STA (21:50)
[2024-08-28 21:58] VITALS: BP 132/89; PULSE 79; RESP 16; TEMP 98.7
== END 2024-08-28 21:58 | disposition home or self-care (01) ==
LOC: EC 18:58
DX: M51.16 Intervertebral disc disorders with radiculopathy, lumbar region (principal); M48.061 Spinal stenosis, lumbar region without neurogenic claudication; Z91.013 Allergy to seafood
CPT/HCPCS: 72131; 99284; 96374; 96375; 96376; J1100; J2360; J1171; J1885

== ENCOUNTER → 2024-09-28 | Outpatient (CLI) | payer OTHER ==
[2024-09-28 11:20] VITALS: BP 118/82; PULSE 87; RESP 17
--- NOTE | 2024-09-28 15:09 | P.PAINPG ---
Objective - Vital Signs Vital signs: Vital Signs Temp Pulse 87 09/28/24 11:11 Resp 17 09/28/24 11:11 BP 118/82 09/28/24 11:11 Pulse Ox 100 09/28/24 11:11 FiO2 Intake & Output 09/27/24 09/28/24 09/28/24 18:59 06:59 18:59 Weight 69.4 kg PQRS Measure Charge Sheet Mode of Arrival: Ambulatory Comment: HISTORY OF PRESENT ILLNESS: A 43 yr old female presents today w severe and chronic LBP > 1 yr secondary to L5-S1 Fusion, L2-L5 retrolisthesis for evaluation s/p Caudal NADIA w Lysis. Pt states she experienced 50% pain relief x 4 mo s/p procedure. Pt states pain level is provoked at 5-6 /10 in intensity, constant, localized in the lumbar spine, predominantly axial, stabbing in character w occasional shooting pain towards the BLEs. Pain is provoked by walking/ standing for periods > 20 min. Pain is alleviated by chiropractic treatments semi monthly Jul - Jan 2024, massage therapy monthly since 2018 which she is currently in, medications, topical, repositioning and rest . Interventional procedures include L5-S1 Fusion, Caudal NADIA w Lysis (05/11) Medications include [place], Ibu REVIEW OF ORGAN SYSTEMS: CONSTITUTIONAL: No fevers or chills. No recent weight loss. NEUROLOGICAL: + numbness and tingling along the distal extremities. No seizure disorders or headaches. MUSCULOSKELETAL: + pain PSYCHIATRIC: Denies current depression or suicidal thoughts. Physical Examinations : Constitutional : Cooperative , not in acute distress . Neurologic : Cranial nerve II to XII intact. No focal neurological deficits. Psychiatric : alert & oriented x 3. Matching mood & appropriate affect. Judgment & insight intact. Musculoskeletal : Cervical Spine Motor strength in the deltoid and biceps: Normal right side. Normal Left side Motor strength biceps and the wrist extensors: Normal right side . Normal left side Motor strength in the triceps muscle: Normal right side. Normal left side Deep tendon reflexes: Normal at the biceps. Normal at Brachioradialis. Normal at triceps Vertebral body tenderness to deep palpation over Cervical facet loading test: positive bilaterally Spurling test: positive bilaterally Neck distraction test: positive bilaterally Aleksandr sign: positive bilaterally Lumbar spine +Incisional scar Motor strength lower extremities ,thigh and legs 5/5 Right side , 5/5 Left side Deep tendon reflexes : Normal Knee Jerk. Normal Ankle Jerk Vertebral body tenderness over L5 Keating Test positive BL L5-S1 Lumbar facet Loading Test: positive Right / positive Left Range of motion of the lumbar spine Flexion 30 degrees, extension 10 degrees Straight Leg Raise test: Left/ Right positive at degrees Luigi test: positive right / positive left. Severe tenderness over the Sacroiliac joint on the Right / Left sides Gaenslen test: positive bilaterally Seated flexion test: positive bilaterally. Sacral spine : Severe tenderness over the Sacroiliac joint: right side / left side Range of motion: Flexion of the lumbar spine <60 degrees Range of motion: Extension of the lumbar spine <20 degrees Gaenslen's Test positive Luigi test: positive right side / left side Thigh Thrust Test Sacral Thrust Test Imaging: MRI non contrast lumbar spine from 02/16/24 reviewed Assessment/ Plan : L5-S1 Fusion, L2-L5 retrolisthesis Recommendation of BL TFESI L5-S1 #1. Risks, benefits of procedure discussed and patient verbalized understanding. Admits to anti- coagulant use or medical history of diabetes. Protocol for discontinuation/ continuation of medications nitesh procedure discussed. All questions answered. I have spent greater than 30 minutes on patient care today. Dr Kirkland was available by phone for the evaluation of this patient. The time was used to review the medical records including relevant urine studies and Prescription history (MAPs), review of the available imaging, evaluation and examination of the patient, coordination of care with the medical staff and if applicable referring physicians, as well as creation of the medical record - Pain Location Lower Back Non-Pharmacological Interventions: Heat, Ice Pharmacological Interventions: Medication, Topical Medication PQRS Narrative: Smoking Status Never smoker Narcotic Agreement Date Signed 04/08/24 Blood Pressure 118/82 Pain Intensity [Lower Back] 5 Scale Used Numeric (1 - 10) Hx Alcohol Use (MH) No Home Medications: Ambulatory Orders Dextroamphetamine/Amphetamine [Adderall] 30 mg PO 0400,1200 07/13/16 Gabapentin [Neurontin] 800 mg PO QID 07/05/20 Metaxalone [Skelaxin] 800 mg PO TID PRN 07/05/20 buPROPion [Wellbutrin] 400 mg PO QAM 08/23/21 atenoloL [Tenormin] 50 mg PO DAILY 09/26/21 Multivitamins, Thera [Multivitamin (formulary)] 1 tab PO DAILY 12/19/21 HYDROcodone/APAP 10-325MG [[place] 10-325] 1 tab PO TID PRN 04/29/24 HYDROcodone/APAP 5-325MG [[place] 5-325] 1 tab PO Q6HR PRN 3 Days #12 tab 08/28/24 Ketorolac [Toradol] 10 mg PO Q6HR PRN #15 tab 08/28/24 predniSONE 50 mg PO DAILY 5 Days #5 tab 08/28/24 diazePAM [Valium] 5 mg PO DAILY 1 Days #2 tab 09/28/24 Controlled Substance Measures - Controlled Substance Measures Is patient prescribed a controlled substance at discharge?: Yes When asked, does pt state using other controlled substances?: Yes If prescribed controlled substance>3 days was MAPS reviewed?: Prescribed <3 Days
== END ==
LOC: PNWHC3 11:05
PROVIDERS: ATTEND Specialist
DX: M43.27 Fusion of spine, lumbosacral region (principal); M43.16 Spondylolisthesis, lumbar region; Z91.013 Allergy to seafood
CPT/HCPCS: 99212

== ENCOUNTER 2024-10-22 09:32 | Day surgery (SDC) | payer OTHER ==
[2024-10-21 08:49] VITALS: BMI 24.8
[2024-10-22 11:36] VITALS: TEMP 97.3
[2024-10-22] MEDS ORDERED: LACTATED RINGERS 1,000 ML IV SCH (12:00)
[2024-10-22 12:10] VITALS: BP 132/75; PULSE 92; RESP 16
== END 2024-10-22 12:26 | disposition home or self-care (01) ==
LOC: ORPAIN 09:32
PROVIDERS: ATTEND Anesthesiology
DX: M54.16 Radiculopathy, lumbar region (principal); Z53.9 Procedure and treatment not carried out, unspecified reason

== ENCOUNTER 2024-11-18 07:07 | Day surgery (SDC) | payer OTHER ==
[2024-11-17 12:08] VITALS: BMI 26.1
[2024-11-18 07:29] VITALS: TEMP 97.8
[2024-11-18] MEDS: diphenhydrAMINE 50 MG/ML 1 ML VIAL IVP STA (07:53)
[2024-11-18] MEDS: LACTATED RINGERS 1,000 ML IV SCH (08:00)
[2024-11-18] MEDS ORDERED: fentaNYL (PF) 50 MCG/ML 2 ML AMP ONE (08:11)
[2024-11-18] MEDS ORDERED: DEXAMETHASONE SOD PHOSPHATE 10 MG/ML 1 ML VIAL ONE (08:11)
[2024-11-18] MEDS ORDERED: IOPAMIDOL M200 10 ML VIAL ONE (08:11)
--- NOTE | 2024-11-18 08:49 | FL ---
[facility]ll Transforaminal Inj 1.17min fluoro time .[id number] [facility], , 11/18/2024 8:47 AM
--- NOTE | 2024-11-18 08:54 | P.PCN ---
Description of Procedure: PREOPERATIVE DIAGNOSIS: 1-Lumbar radiculopathy . 2-lumbar degenerative disc disease. 3-lumbar spondylosis with lumbar facet arthropathy without myelopathy POSTOPERATIVE DIAGNOSIS: 1-lumbar radiculopathy. 2-lumbar degenerative disc disease. 3-lumbar spondylosis with facet arthropathy without myelopathy PROCEDURE 1. Transforaminal epidural steroid injection under fluoroscopic guidance at BILATERAL L5-S1 level. (Fluoroscopy images stored on file in the radiology Department ) 2. Lumbar epidurogram . ANESTHESIA: Local with 1% lidocaine 5 ml. subcutaneously. Continuous pulse ox, EKG, blood pressure and verbal communication was maintained with the patient. Fentanyl 200 mcg in increment. Patient was extremely sensitive to needle positions, was forced to give IV fentanyl even it was not planned. EBL: Minimal PROCEDURE INDICATION: The patient with low back pain and radiculopathy symptoms unresponsive to conservative treatment. The patient was seen and identified in the preoperative area. Risks, benefits, complications, and alternatives were discussed with the patient. The patient agreed to proceed with the procedure and signed the consent. IV was started, and vital signs were stable. Because of patient's allergy to iodine, premedicated with oral prednisone at home and IV Benadryl 25 mg preop area. PROCEDURE DESCRIPTION / TECHNIQUE: After getting consent, patient was taken to the OR and time out was completed. The patient was placed in the prone position on procedure table and a pillow was placed under the abdomen to reduce lumbar lordosis. The lumbosacral area was prepped and draped in the usual sterile fashion. Critical pause was taken. After injecting 5 mL of plain 1% lidocaine subcutaneously, under oblique view of the fluoroscope, a 22-gauge spinal needle was introduced under the tunnel view of the fluoroscope on the RIGHT side and the needle was advanced so that the tip of the needle was at the posterior inferior quadrant of the intervertebral foramen at the lateral view of the fluoroscope and in the lateral third of the facet column in the AP view of the fluoroscope. It was very difficult to maneuver the needle because of the surgery in the same area with bone graft and metal rods. Negative CSF, negative blood, negative paresthesia. After needle position confirmation by AP and cross table lateral view, 2 mL of Isovue-M 200 contrast was injected under continuous fluoroscope. No contrast was noted in the intrathecal or intravascular space. The epidurogram was noted. Again after repeated negative aspiration 2.5 mL solution was injected which consists 1 mL of normal saline mixed with 1.5 mL of 15 mg dexamethasone. Needle was removed . Same procedure was repeated at the LEFT side at same level , using contrast under continuous fluoroscopy and using same amount of dexamethasone. At the end of the procedure, skin was cleansed, and bandages were applied. DISPOSITION / PLANS: No complication. The patient tolerated the procedure well. The patient was placed in a supine position and transferred to the recovery area in a stable condition for observation. There was no evidence of lower extremity motor or sensory deficit after the procedure. Patient was discharged from the recovery room after meeting discharge criteria. Home discharge instructions were given to the patient by the staff. The patient was reexamined prior to discharge.
[2024-11-18] MEDS: IV FLUID CONTINUATION 1,000 ML IV ONE (09:00)
[2024-11-18 09:08] VITALS: RESP 16
[2024-11-18 09:26] VITALS: BP 136/86; PULSE 78
== END 2024-11-18 09:32 ==
LOC: ORPAIN 07:07
PROVIDERS: ATTEND Pain Medicine Interventional Pain Medicine
DX: M47.26 Other spondylosis with radiculopathy, lumbar region (principal); M51.16 Intervertebral disc disorders with radiculopathy, lumbar region; Z91.013 Allergy to seafood; Z88.8 Allergy status to other drugs, medicaments and biological substances
CPT/HCPCS: 64483; J1200; J1100; J3010; Q9966